=== PATIENT | female | born 1955 | race Caucasian/White ===

== ENCOUNTER → 2016-04-05 | Outpatient (CLI) | payer OTHER, MEDICARE ==
[~2016-04-05] MED LIST: /CELE20CA PO; /WARF25TA PO; ACET50TA PO; ASPI1TAB24 PO; ASPI81CH12 PO; BONI150T PO; BONIVA PO; CALC600T10 PO; CALC600T57 PO; CEFT500T PO; CENTRUM SILVER PO; CENTTAB PO; CEVI1CAP PO; COLA100C PO; COLACE PO; CYCL10TA PO; FLUO40CA57 PO; GABA600T PO; GABAPOW41 PO; HYDR4TAB PO; HYDROMORPHINE PO; IBUP60TA PO; IBUPROPHEN PO; KEPP1000 PO; KEPP500T4 PO; KEPP500T5 PO; KEPPRA PO; LANS30CA PO; LEVE500XR PO; LIDO5DIS36 TD; LUNE1TAB5 PO; LUNESTA PO; LYRI75CA PO; META0.52 PO; METAMUCIL PO; METO25TAB PO; METO75TA PO; MORPHINE PUMP; OXYC30TA4 PO; PERC2.5T PO; PRAVASTATIN PO; PREV30CA6 PO; PROZAC PO; VENL150T PO; VENLAFAXINE PO; VIT D PO; VITA100066 PO; VITMTA PO; ZOFR20TA PO; morphine pump
== END ==
LOC: M LAB 10:21
PROVIDERS: ATTEND Physician Assistant Medical
DX: R56.9 Unspecified convulsions (principal)

== ENCOUNTER → 2016-04-23 | Outpatient (CLI) | payer BC, OTHER, MEDICARE ==
[~2016-04-23] MED LIST changes: -CEFT500T PO; +CEFT500T3 PO; +FLUO40CA PO; -FLUO40CA57 PO
== END ==
LOC: M LAB 11:08
PROVIDERS: ATTEND Physician Assistant Medical
DX: R56.9 Unspecified convulsions (principal)

== ENCOUNTER → 2016-05-31 | Outpatient (CLI) | payer BC, OTHER, MEDICARE ==
[~2016-05-31] MED LIST changes: +ISOVUE-370 76% 100ML VIAL (Q9967) As Ordered ONE
--- NOTE | 2016-05-31 11:32 | REP ---
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 COMPARISONS: Multiple, the latest 11/15/2015. CONTRAST UTILIZED: 100 mL Isovue-370. There is no mediastinal or hilar adenopathy. There is a tiny collection of fluid in the medial right lung base seemingly loculated and very small. There is no pericardial effusion. The imaged upper abdomen is unchanged. The imaged osseous structures are unchanged. Evaluation of the lung sharp shows postoperative change in the right lower lobe from previous nodule resection which, by history, represented carcinoid. There are no new abnormal nodules, masses, or opacities. IMPRESSION: Status post right lower lobe resection due to carcinoid with postoperative changes as described above. There is no evidence of recurrent disease. There is a small right lung base effusion. Followup to resolution is suggested. Signed by Morgan Mendoza DO 05/31/2016 11:52 A
== END ==
LOC: M RAD 07:53
PROVIDERS: ATTEND Internal Medicine Medical Oncology
DX: Z90.2 Acquired absence of lung [part of] (principal); J90 Pleural effusion, not elsewhere classified
CPT/HCPCS: 71260; Q9967

== ENCOUNTER → 2016-06-12 | Outpatient (REF) | payer OTHER, MEDICARE ==
[~2016-06-12] MED LIST changes: -ISOVUE-370 76% 100ML VIAL (Q9967) As Ordered ONE
== END ==
LOC: M LAB REF 12:23
PROVIDERS: ATTEND Internal Medicine Medical Oncology
DX: C34.90 Malignant neoplasm of unspecified part of unspecified bronchus or lung (principal)

== ENCOUNTER → 2016-09-02 | Outpatient (CLI) | payer BC, OTHER, MEDICARE ==
[~2016-09-02] MED LIST changes: -COLA100C PO; +COLA100C3 PO
[2016-09-02 10:50] LABS: BASO % 0.4 % (0.0-1.0); EOS # 0.1 K/mm3 (0.0-0.50); EOS % 2.9 % (0.0-3.0); LARGE UNSTAINED CELL # 0.1 K/mm3 (0.0-0.4); LARGE UNSTAINED CELL % 2.5 % (0.0-4.0); LYMPH # 1.8 K/mm3 (1.5-4.5); LYMPH % 37.9 % (24.0-44.0); MEAN CORPUSCULAR HEMOGLOBIN 32.3 pg (27.0-33.0); MEAN CORPUSCULAR HGB CONC 32.4 g/dl (32.0-36.5); MEAN CORPUSCULAR VOLUME 99.4 fl (80.0-96.0); MONO # 0.3 K/mm3 (0.0-0.8); MONO % 6.5 % (0.0-5.0); NEUTROPHILS # 2.4 K/mm3 (1.8-7.7); NEUTROPHILS % 49.8 % (36.0-66.0); PLATELET COUNT, AUTOMATED 202 k/mm3 (150-450); RED CELL DISTRIBUTION WIDTH 13.1 % (11.5-14.5); WHITE BLOOD COUNT 4.8 K/mm3 (4.0-10.0)
[2016-09-02 11:13] LABS: ALBUMIN 3.3 GM/DL (3.2-5.2); ALBUMIN/GLOBULIN RATIO 0.89 (1.00-1.93); ALKALINE PHOSPHATASE 110 U/L (45-117); ALT/SGPT 68 U/L (12-78); ANION GAP 5 MEQ/L (8-16); AST/SGOT 51 U/L (15-37); BILIRUBIN,TOTAL 0.4 MG/DL (0.2-1.0); BLOOD UREA NITROGEN 12 MG/DL (7-18); CALCIUM LEVEL 9.1 MG/DL (8.8-10.2); CARBON DIOXIDE LEVEL 31 MEQ/L (21-32); CHLORIDE LEVEL 103 MEQ/L (98-107); CREATININE FOR GFR 0.68 MG/DL (0.55-1.02); GLOMERULAR FILTRATION RATE > 60.0 (>45); GLUCOSE, FASTING 97 MG/DL (80-110); POTASSIUM SERUM 4.4 MEQ/L (3.5-5.1); SODIUM LEVEL 139 MEQ/L (136-145)
== END ==
LOC: M LAB 09:27
PROVIDERS: ATTEND Internal Medicine Medical Oncology
DX: C34.90 Malignant neoplasm of unspecified part of unspecified bronchus or lung (principal)

== ENCOUNTER → 2016-09-02 | Outpatient (CLI) | payer BC, OTHER, MEDICARE ==
[~2016-09-02] MED LIST changes: +ASPI-161 PO; -ASPI1TAB24 PO; -CALC600T10 PO; +CALC600T31 PO; -COLA100C3 PO; +COLA100C5 PO; +IBUP1TAB6 PO; -IBUP60TA PO; -KEPP1000 PO; +KEPP10002 PO; +KEPP500T13 PO; -KEPP500T5 PO; -LIDO5DIS36 TD; +LIDO5DIS41 TD; +METO25TA4 PO
--- NOTE | 2016-09-04 15:14 | REP ---
Octreoscan nuclear scintigraphy with planar and SPECT imaging : History: Pulmonary carcinoid right lower lobe, status post resection. No comparison nuclear study. Comparison chest CT exam is from May 31, 2016. Technique: 6.07 mCi of Indium-111 Octreoscan is injected. 4, 24, and 48 hour whole body planar images are acquired along with planar oblique images of the trunk at 4 hours and 48 hours. A SPECT acquisition of the chest and abdomen is included as well. Findings: There is expected uptake in the bowel, genitourinary tract, spleen and faint uptake in the liver. There is no focus of increased uptake in either lung or in the mediastinum. No evidence of metastatic uptake in the liver. Impression: Negative Octreoscan nuclear scintigraphy. Signed by Armaan Bhatia MD 09/04/2016 04:32 P
== END ==
LOC: M RAD 08:50
PROVIDERS: ATTEND Internal Medicine Medical Oncology
DX: C7A.090 Malignant carcinoid tumor of the bronchus and lung (principal)

== ENCOUNTER → 2016-09-03 | Outpatient (REF) | payer OTHER, MEDICARE ==
[~2016-09-03] MED LIST changes: -ASPI-161 PO; +ASPI1TAB24 PO; +CALC600T10 PO; -CALC600T31 PO; +COLA100C3 PO; -COLA100C5 PO; -IBUP1TAB6 PO; +IBUP60TA PO; +KEPP1000 PO; -KEPP10002 PO; -KEPP500T13 PO; +KEPP500T5 PO; +LIDO5DIS36 TD; -LIDO5DIS41 TD; -METO25TA4 PO
[2016-09-09 10:09] LABS: 5HIAA 24HR URINE 3.5 mg/24 hr (0.0-14.9); 5HIAA TOTAL URINE 1.4 mg/L (Undefined)
== END ==
LOC: M LAB REF 13:24
PROVIDERS: ATTEND Internal Medicine Medical Oncology
DX: C34.90 Malignant neoplasm of unspecified part of unspecified bronchus or lung (principal)

== ENCOUNTER → 2016-09-04 | Outpatient (CLI) | payer BC, OTHER, MEDICARE | LOC: M LAB 13:20 | PROVIDERS: ATTEND Physician Assistant Medical | DX: R56.9 Unspecified convulsions (principal) ==

== ENCOUNTER → 2016-09-09 | Outpatient (CLI) | payer BC, OTHER, MEDICARE ==
--- NOTE | 2016-09-10 06:22 | REP ---
Clinical: Syncope . Technique: Hopkins scale and color Doppler evaluation using linear high frequency transducer Findings: Two-dimensional hopkins scale and color images demonstrate mixed plaquing along the distal common carotid arteries and carotid bulbs (right greater than left) with essentially normal arterial lumen, laminar flow and patency. Color Doppler interrogation demonstrates normal arterial wave patterns and velocities with mild to moderate spectral broadening. Normal flow direction is appreciated in the bilateral vertebral arteries. RIGHT (cm/s) LEFT (cm/s) ICA peak systolic velocity 59.5 51.0 ICA diastolic velocity 27.1 25.0 ECA peak systolic velocity 78.6 69.3 CCA peak systolic velocity 75.6 70.5 ICA/CCA ratio 0.79 0.72 Impression: No hemodynamically significant areas of narrowing or stenosis appreciated. Based on set standards narrowing falls within the less than 50% range. Signed by Jose G Youssef MD 09/10/2016 06:14 A
== END ==
LOC: M RAD 14:55
PROVIDERS: ATTEND Physician Assistant Medical
DX: R55 Syncope and collapse (principal)

== ENCOUNTER → 2016-12-05 | Outpatient (CLI) | payer BC, OTHER, MEDICARE ==
[~2016-12-05] MED LIST changes: +ASPI-161 PO; -ASPI1TAB24 PO; -CALC600T10 PO; +CALC600T31 PO; -COLA100C3 PO; +COLA100C5 PO; +IBUP1TAB6 PO; -IBUP60TA PO; -KEPP1000 PO; +KEPP10002 PO; +KEPP500T13 PO; -KEPP500T5 PO; -LIDO5DIS36 TD; +LIDO5DIS41 TD; +METO25TA4 PO
[2016-12-05 19:26] LABS: BASO % 0.5 % (0.0-1.0); EOS # 0.2 K/mm3 (0.0-0.50); EOS % 3.6 % (0.0-3.0); LARGE UNSTAINED CELL # 0.1 K/mm3 (0.0-0.4); LARGE UNSTAINED CELL % 2.4 % (0.0-4.0); LYMPH # 2.1 K/mm3 (1.5-4.5); MEAN CORPUSCULAR HEMOGLOBIN 32.7 pg (27.0-33.0); MEAN CORPUSCULAR HGB CONC 32.5 g/dl (32.0-36.5); MEAN CORPUSCULAR VOLUME 100.9 fl (80.0-96.0); MONO # 0.4 K/mm3 (0.0-0.8); MONO % 7.7 % (0.0-5.0); NEUTROPHILS # 2.9 K/mm3 (1.8-7.7); NEUTROPHILS % 50.9 % (36.0-66.0); PLATELET COUNT, AUTOMATED 224 k/mm3 (150-450); RED CELL DISTRIBUTION WIDTH 12.4 % (11.5-14.5); WHITE BLOOD COUNT 5.7 K/mm3 (4.0-10.0)
[2016-12-05 19:28] LABS: ALBUMIN 3.5 GM/DL (3.2-5.2); ALBUMIN/GLOBULIN RATIO 0.85 (1.00-1.93); ALKALINE PHOSPHATASE 116 U/L (45-117); ALT/SGPT 101 U/L (12-78); ANION GAP 7 MEQ/L (8-16); AST/SGOT 89 U/L (15-37); BILIRUBIN,TOTAL 0.3 MG/DL (0.2-1.0); BLOOD UREA NITROGEN 10 MG/DL (7-18); CALCIUM LEVEL 9.2 MG/DL (8.8-10.2); CARBON DIOXIDE LEVEL 31 MEQ/L (21-32); CHLORIDE LEVEL 100 MEQ/L (98-107); GLOMERULAR FILTRATION RATE > 60.0 (>45); GLUCOSE, FASTING 80 MG/DL (80-110); SODIUM LEVEL 138 MEQ/L (136-145); TOTAL PROTEIN 7.6 GM/DL (6.4-8.2)
[2016-12-05 19:29] LABS: POTASSIUM SERUM 5.2 MEQ/L (3.5-5.1)
== END ==
LOC: M LAB 17:14
PROVIDERS: ATTEND Internal Medicine Medical Oncology
DX: C34.90 Malignant neoplasm of unspecified part of unspecified bronchus or lung (principal)

== ENCOUNTER → 2016-12-08 | Outpatient (REF) | payer OTHER, MEDICARE ==
[2016-12-12 14:17] LABS: 5HIAA 24HR URINE 4.5 mg/24 hr (0.0-14.9); 5HIAA TOTAL URINE 2.1 mg/L (Undefined)
== END ==
LOC: M LAB REF 14:57
PROVIDERS: ATTEND Internal Medicine Medical Oncology
DX: C34.90 Malignant neoplasm of unspecified part of unspecified bronchus or lung (principal)

== ENCOUNTER → 2016-12-30 | Outpatient (REF) | payer OTHER, MEDICARE ==
[2016-12-30 21:55] LABS: FREE T4 0.75 NG/DL (0.76-1.46)
== END ==
LOC: M LAB REF 17:04
PROVIDERS: ATTEND Internal Medicine Medical Oncology
DX: C34.90 Malignant neoplasm of unspecified part of unspecified bronchus or lung (principal)

== ENCOUNTER → 2017-01-06 | Outpatient (CLI) | payer BC, OTHER, MEDICARE ==
--- NOTE | 2017-01-07 04:40 | REP ---
Clinical: Prior right lower lobe resection for carcinoid tumor. Follow-up. Comparison: 05/31/2016. Findings: Right-sided volume loss and postoperative changes are again identified and consistent with a history of prior right lower lobe resection and minimal postoperative scarring remains stable and the previously identified small right pleural effusion has resolved. Current examination demonstrates a 12 mm ground-glass nodule (GGN) which is not specific, but represents a new finding compared to prior examination. No significant further nodule or mass lesion is appreciated. No pleural effusion. No pneumothorax. No obvious adenopathy. Tracheobronchial tree remains patent. Mediastinum demonstrates relatively normal thoracic aorta, pulmonary vasculature and heart/pericardium with mild atherosclerotic changes again noted. Surrounding musculoskeletal structures are intact and normal. Limited evaluation of the upper abdomen demonstrates stable 1.7 cm right adrenal lesion consistent with atypical adenoma. Impression: 1. Stable postoperative changes involving the right hemithorax. Previously noted small right pleural effusion resolved. 2. 12 mm GGN warrants 6-month follow-up examination based on revised Fleischner Society criteria (lesion III-c). 3. Stable right adrenal lesion consistent with atypical adenoma. Signed by Jose G Youssef MD 01/07/2017 04:31 A
== END ==
LOC: M RAD 16:18
PROVIDERS: ATTEND Internal Medicine Pulmonary Disease
DX: C34.91 Malignant neoplasm of unspecified part of right bronchus or lung (principal)

== ENCOUNTER → 2017-02-24 | Outpatient (REF) | payer OTHER, MEDICARE ==
[2017-02-24 14:01] LABS: FREE T4 0.76 NG/DL (0.76-1.46)
== END ==
LOC: M LAB REF 13:10
PROVIDERS: ATTEND Internal Medicine Medical Oncology
DX: C34.90 Malignant neoplasm of unspecified part of unspecified bronchus or lung (principal)

== ENCOUNTER → 2017-03-27 | Outpatient (CLI) | payer BC, OTHER, MEDICARE | LOC: M RAD 09:42 | DX: R91.8 Other nonspecific abnormal finding of lung field (principal) | CPT/HCPCS: 71250 ==

== ENCOUNTER → 2017-04-02 | Outpatient (REF) | payer OTHER, MEDICARE ==
[2017-04-02 14:18] LABS: THYROID STIMULATING HORMONE 0.785 uIU/ML (0.358-3.740)
[2017-04-02 14:18] LABS: FREE T4 0.84 NG/DL (0.76-1.46)
== END ==
LOC: M LAB REF 13:04
DX: C34.90 Malignant neoplasm of unspecified part of unspecified bronchus or lung (principal)

== ENCOUNTER → 2017-05-21 | Outpatient (REF) | payer OTHER, MEDICARE ==
[2017-05-27 00:06] LABS: CHROMOGRANIN A 4 nmol/L (0-5)
== END ==
LOC: M LAB REF 13:32
DX: C34.00 Malignant neoplasm of unspecified main bronchus (principal)

== ENCOUNTER → 2017-07-03 | Outpatient (CLI) | payer OTHER, MEDICARE ==
[2017-07-06 00:06] LABS: LEVETIRACETAM (KEPPRA) 18.7 ug/mL (10.0-40.0)
== END ==
LOC: M LAB 11:08
DX: R56.9 Unspecified convulsions (principal)

== ENCOUNTER → 2017-09-22 | Outpatient (REF) | payer OTHER, MEDICARE ==
[2017-09-25 00:06] LABS: CHROMOGRANIN A 2 nmol/L (0-5)
== END ==
LOC: M LAB REF 13:16
DX: C34.31 Malignant neoplasm of lower lobe, right bronchus or lung (principal)

== ENCOUNTER → 2017-09-22 | Outpatient (CLI) | payer BC, OTHER, MEDICARE | LOC: M RAD 10:41 | DX: R91.8 Other nonspecific abnormal finding of lung field (principal); Z90.2 Acquired absence of lung [part of] ==

== ENCOUNTER → 2017-12-08 | Outpatient (CLI) | payer BC, OTHER, MEDICARE ==
[2017-12-08 22:57] LABS: CREATININE FOR GFR 0.63 MG/DL (0.55-1.30); GLOMERULAR FILTRATION RATE > 60.0 (>45)
[2017-12-08 22:57] LABS: BLOOD UREA NITROGEN 8 MG/DL (7-18)
[2017-12-12 00:06] LABS: LEVETIRACETAM (KEPPRA) 9.6 ug/mL (10.0-40.0)
== END ==
LOC: M LAB 12:45
DX: M47.896 Other spondylosis, lumbar region (principal); R56.9 Unspecified convulsions
CPT/HCPCS: 82565

== ENCOUNTER → 2017-12-15 | Outpatient (REF) | payer OTHER, MEDICARE ==
[2017-12-18 00:06] LABS: CHROMOGRANIN A 3 nmol/L (0-5)
== END ==
LOC: M LAB REF 13:41
DX: C34.31 Malignant neoplasm of lower lobe, right bronchus or lung (principal)

== ENCOUNTER → 2017-12-29 | Outpatient (CLI) | payer BC, OTHER, MEDICARE ==
[2018-01-01 10:13] LABS: LEVETIRACETAM (KEPPRA) 22.3 ug/mL (10.0-40.0)
== END ==
LOC: M LAB 17:27
DX: R56.9 Unspecified convulsions (principal)
CPT/HCPCS: 36415

== ENCOUNTER → 2018-03-05 | Outpatient (CLI) | payer OTHER, BC, MEDICARE ==
[2018-03-05 10:52] LABS: HEMATOCRIT 40.3 % (36.0-47.0); HEMOGLOBIN 12.6 g/dl (12.0-15.5); MEAN CORPUSCULAR HEMOGLOBIN 31.5 pg (27.0-33.0); MEAN CORPUSCULAR HGB CONC 31.3 g/dl (32.0-36.5); MEAN CORPUSCULAR VOLUME 100.8 fl (80.0-96.0); PLATELET COUNT, AUTOMATED 175 10^3/uL (150-450); RED CELL DISTRIBUTION WIDTH 13.2 % (11.5-14.5); WHITE BLOOD COUNT 6.6 10^3/uL (4.0-10.0)
[2018-03-05 10:56] LABS: APPEARANCE, URINE CLEAR (CLEAR); BACTERIA, URINE AUTO 1+ (NEGATIVE); BILIRUBIN, URINE AUTO NEGATIVE (NEGATIVE); BLOOD, URINE BLOOD NEGATIVE (NEGATIVE); COLOR, URINE YELLOW (YELLOW); GLUCOSE, URINE (UA) AUTO NEGATIVE (NEGATIVE); KETONE, URINE AUTO NEGATIVE (NEGATIVE); LEUKOCYTE ESTERASE, URINE AUTO NEGATIVE (NEGATIVE); NITRITE, URINE AUTO NEGATIVE (NEGATIVE); PROTEIN, URINE AUTO NEGATIVE (NEGATIVE); RBC, URINE AUTO 1 /HPF (0-3); SPECIFIC GRAVITY URINE AUTO 1.003 (1.002-1.035); SQUAMOUS EPITHELIAL CELL UR AU 0 /HPF (0-6); WBC, URINE AUTO 0 /HPF (0-3)
[2018-03-05 11:04] LABS: INR 1.16; PARTIAL THROMBOPLASTIN TIME 37.5 SECONDS (25.4-37.6); PROTHROMBIN TIME 14.9 SECONDS (12.1-14.4)
[2018-03-05 11:14] LABS: ALBUMIN 3.3 GM/DL (3.2-5.2); ALBUMIN/GLOBULIN RATIO 0.79 (1.00-1.93); ALKALINE PHOSPHATASE 196 U/L (45-117); ALT/SGPT 68 U/L (12-78); ANION GAP 7 MEQ/L (8-16); AST/SGOT 97 U/L (7-37); BILIRUBIN,TOTAL 0.8 MG/DL (0.2-1.0); BLOOD UREA NITROGEN 8 MG/DL (7-18); CALCIUM LEVEL 9.1 MG/DL (8.8-10.2); CARBON DIOXIDE LEVEL 33 MEQ/L (21-32); CHLORIDE LEVEL 97 MEQ/L (98-107); CREATININE FOR GFR 0.72 MG/DL (0.55-1.30); GLOMERULAR FILTRATION RATE > 60.0 (>45); GLUCOSE, FASTING 259 MG/DL (70-100); POTASSIUM SERUM 4.4 MEQ/L (3.5-5.1); SODIUM LEVEL 137 MEQ/L (136-145); TOTAL PROTEIN 7.5 GM/DL (6.4-8.2)
== END ==
LOC: M LAB 09:54
DX: M54.5 Low back pain (principal)
CPT/HCPCS: 80053

== ENCOUNTER → 2018-04-03 | Outpatient (REF) | payer OTHER, MEDICARE ==
[~2018-04-03] MED LIST changes: +EFFE150C2 PO; -GABA600T PO; +GABA600T4 PO; +OXYC-141 PO; +OXYC-406 PO; -ZOFR20TA PO; +ZOFR4TAB16 PO
[2018-04-03 11:18] LABS: AMORPHOUS SEDIMENT SMALL (NEGATIVE); BACTERIA, URINE AUTO 1+ (NEGATIVE); RBC, URINE AUTO 6 /HPF (0-3); SQUAMOUS EPITHELIAL CELL UR AU 0 /HPF (0-6); WBC, URINE AUTO TNTC /HPF (0-3)
== END ==
LOC: M LAB REF 10:26
PROVIDERS: ATTEND Nurse Practitioner Family
DX: N31.9 Neuromuscular dysfunction of bladder, unspecified (principal); N39.0 Urinary tract infection, site not specified

== ENCOUNTER → 2018-04-21 | Outpatient (REF) | payer OTHER, MEDICARE | LOC: M LAB REF 12:00 | PROVIDERS: ATTEND Internal Medicine | DX: N39.0 Urinary tract infection, site not specified (principal) ==

== ENCOUNTER → 2018-05-14 | Outpatient (CLI) | payer BC, OTHER, MEDICARE ==
[~2018-05-14] MED LIST changes: +GASTROGRAFIN SOLUTION 30ML (Q9963) As Ordered ONE; +ISOVUE-370 76% 100ML VIAL (Q9967) As Ordered ONE
--- NOTE | 2018-05-14 16:09 | REP ---
CT of the chest with IV contrast: Comparisons are 04/02/2018, 09/22/2017 and 03/27/2017. The the patient has a known right lower lobectomy, unchanged from the comparison studies. There are no lung masses or nodules. There are no infiltrates or effusions. There are surgical clips in the right hilus, compatible with right lower lobectomy. There is no mediastinal or hilar lymph node enlargement. No axillary lymph node enlargement. Thoracic aorta is unremarkable. Cardiac size is normal. No pericardial effusion. Impression: Right lower lobectomy, unchanged. Otherwise, negative CT of the chest. No change from prior studies. Electronically Signed by Mesfin Jones MD 05/14/2018 04:00 P
--- NOTE | 2018-05-14 16:22 | REP ---
CT of the abdomen and pelvis with IV and oral contrast dual phase imaging: Imaging is initially performed during the arterial phase of enhancement. Scanning is repeated during the equilibrium phase of enhancement. Additionally beam-hardening reduction software is utilized. There are no comparison studies. The hepatic parenchyma is homogeneous. There are no hepatic masses. There are surgical clips in the gallbladder fossa. The common biliary duct measures 18 mm transverse diameter. This is dilated even in a postcholecystectomy patient, however there is no intrahepatic biliary duct dilatation. The liver and spleen are normal size and unremarkable. There is a stable right adrenal nodule, unchanged in size from a previous chest CT dated 06/22/2014. The left adrenal is unremarkable. The kidneys are unremarkable. Abdominal aorta is unremarkable except for occasional calcified atheroma. There is no retroperitoneal mass or adenopathy. There is no mesenteric mass or adenopathy. The bowel and mesentery are unremarkable except for descending colon and sigmoid diverticulosis without diverticulitis. Pelvis: There is a hysterectomy. Vaginal cuff and adnexa are unremarkable. The bladder is unremarkable. There is no ascites or adenopathy. There is a left hip arthroplasty. Impression: Cholecystectomy. Common biliary duct measures up to 18 mm diameter, somewhat larger than usual in a postcholecystectomy patient, however there is no intrahepatic biliary duct dilatation. Hepatic parenchyma is homogeneous. Stable right adrenal nodule. Diverticulosis without diverticulitis. Hysterectomy. Electronically Signed by Mesfin Jones MD 05/14/2018 04:13 P
== END ==
LOC: M RAD 12:43
PROVIDERS: ATTEND Internal Medicine Hematology & Oncology
DX: C34.31 Malignant neoplasm of lower lobe, right bronchus or lung (principal); E27.9 Disorder of adrenal gland, unspecified; K57.32 Diverticulitis of large intestine without perforation or abscess without bleeding; K76.89 Other specified diseases of liver; Z90.2 Acquired absence of lung [part of]; Z90.49 Acquired absence of other specified parts of digestive tract; Z90.710 Acquired absence of both cervix and uterus; Z96.642 Presence of left artificial hip joint
CPT/HCPCS: 71260; 74177; Q9963; Q9967

== ENCOUNTER → 2018-07-21 | Outpatient (CLI) | payer BC, OTHER, MEDICARE ==
[~2018-07-21] MED LIST changes: -/CELE20CA PO; -/WARF25TA PO; -ACET50TA PO; -BONI150T PO; +BONI1TAB PO; +CELE1CAP4 PO; +COUM1TAB18 PO; -GASTROGRAFIN SOLUTION 30ML (Q9963) As Ordered ONE; -ISOVUE-370 76% 100ML VIAL (Q9967) As Ordered ONE; +MAPA500T17 PO; +METO1TAB63 PO; -METO25TAB PO; +TOUJ1.2I SC; -VENL150T PO; +VENL150T14 PO
== END ==
LOC: M LAB 12:16
PROVIDERS: ATTEND Physician Assistant Medical
DX: R56.9 Unspecified convulsions (principal)

== ENCOUNTER → 2018-09-01 | Outpatient (CLI) | payer BC, MEDICARE, OTHER ==
--- NOTE | 2018-09-01 18:53 | REP ---
Chest two views HISTORY: Preop Comparison: 02/02/2016 There is loss of volume in the right hemithorax. Linear densities are present in the right lower lobe consistent with scarring. The left lung is clear. The heart is normal in size. The pulmonary vasculature is normal in appearance. The bony structure is intact. There is an old right rib fracture. IMPRESSION: No acute disease. Electronically Signed by Ben Charles MD 09/01/2018 06:44 P
== END ==
LOC: M RAD 17:12
PROVIDERS: ATTEND Physical Medicine & Rehabilitation Pain Medicine
DX: G89.4 Chronic pain syndrome (principal); M54.16 Radiculopathy, lumbar region

== ENCOUNTER → 2018-09-03 | Outpatient (REF) | payer OTHER, MEDICARE ==
[2018-09-03 13:19] LABS: APPEARANCE, URINE HAZY (CLEAR); BACTERIA, URINE AUTO NEGATIVE (NEGATIVE); BILIRUBIN, URINE AUTO NEGATIVE (NEGATIVE); BLOOD, URINE BLOOD NEGATIVE (NEGATIVE); COLOR, URINE YELLOW (YELLOW); GLUCOSE, URINE (UA) AUTO 3+ mg/dL (NEGATIVE); KETONE, URINE AUTO NEGATIVE (NEGATIVE); LEUKOCYTE ESTERASE, URINE AUTO NEGATIVE (NEGATIVE); NITRITE, URINE AUTO NEGATIVE (NEGATIVE); PROTEIN, URINE AUTO NEGATIVE (NEGATIVE); RBC, URINE AUTO 1 /HPF (0-3); SPECIFIC GRAVITY URINE AUTO 1.013 (1.002-1.035); SQUAMOUS EPITHELIAL CELL UR AU 0 /HPF (0-6); WBC, URINE AUTO 1 /HPF (0-3)
[2018-09-03 13:30] LABS: INR 0.99; PROTHROMBIN TIME 13.2 SECONDS (12.1-14.4)
[2018-09-03 13:31] LABS: PARTIAL THROMBOPLASTIN TIME 35.8 SECONDS (25.4-37.6)
== END ==
LOC: M LAB REF 12:35
PROVIDERS: ATTEND Internal Medicine
DX: Z01.818 Encounter for other preprocedural examination (principal); M54.6 Pain in thoracic spine; G89.4 Chronic pain syndrome

== ENCOUNTER → 2018-10-05 | Outpatient (CLI) | payer BC, OTHER, MEDICARE ==
[~2018-10-05] MED LIST changes: +INVO100T PO
[2018-10-05 11:15] LABS: APPEARANCE, URINE CLEAR (CLEAR); BACTERIA, URINE AUTO NEGATIVE (NEGATIVE); BILIRUBIN, URINE AUTO NEGATIVE (NEGATIVE); BLOOD, URINE BLOOD NEGATIVE (NEGATIVE); COLOR, URINE YELLOW (YELLOW); GLUCOSE, URINE (UA) AUTO 3+ mg/dL (NEGATIVE); KETONE, URINE AUTO NEGATIVE (NEGATIVE); LEUKOCYTE ESTERASE, URINE AUTO NEGATIVE (NEGATIVE); NITRITE, URINE AUTO NEGATIVE (NEGATIVE); PROTEIN, URINE AUTO NEGATIVE (NEGATIVE); RBC, URINE AUTO 2 /HPF (0-3); SPECIFIC GRAVITY URINE AUTO 1.009 (1.002-1.035); SQUAMOUS EPITHELIAL CELL UR AU 0 /HPF (0-6); UROBILINOGEN, URINE AUTO 0.2 mg/dL (0.0-2.0); WBC, URINE AUTO 1 /HPF (0-3)
== END ==
LOC: M LAB 10:39
PROVIDERS: ATTEND Neurological Surgery
DX: G89.4 Chronic pain syndrome (principal)

== ENCOUNTER → 2018-11-26 | Outpatient (REF) | payer OTHER, MEDICARE ==
[2018-11-26 13:23] LABS: APPEARANCE, URINE TURBID (CLEAR); BACTERIA, URINE AUTO 1+ (NEGATIVE); BILIRUBIN, URINE AUTO NEGATIVE (NEGATIVE); BLOOD, URINE BLOOD NEGATIVE (NEGATIVE); COLOR, URINE YELLOW (YELLOW); GLUCOSE, URINE (UA) AUTO 3+ mg/dL (NEGATIVE); KETONE, URINE AUTO NEGATIVE (NEGATIVE); LEUKOCYTE ESTERASE, URINE AUTO 3+ (NEGATIVE); MUCUS, URINE SMALL (NEGATIVE); NITRITE, URINE AUTO POSITIVE (NEGATIVE); PROTEIN, URINE AUTO NEGATIVE (NEGATIVE); RBC, URINE AUTO 6 /HPF (0-3); SPECIFIC GRAVITY URINE AUTO 1.012 (1.002-1.035); SQUAMOUS EPITHELIAL CELL UR AU 1 /HPF (0-6); UROBILINOGEN, URINE AUTO 0.2 mg/dL (0.0-2.0); WBC, URINE AUTO TNTC /HPF (0-3)
== END ==
LOC: M LAB REF 13:01
PROVIDERS: ATTEND Internal Medicine
DX: N39.0 Urinary tract infection, site not specified (principal)

== ENCOUNTER → 2018-12-07 | Outpatient (CLI) | payer BC, MEDICARE ==
[~2018-12-07] MED LIST changes: +NORT25CA2 PO; +PANT40TA3 PO; +SULF1TAB93 PO
== END ==
LOC: M LAB 12:59
PROVIDERS: ATTEND Physician Assistant Medical
DX: G40.89 Other seizures (principal)

== ENCOUNTER → 2018-12-10 | Outpatient (REF) | payer OTHER, MEDICARE | LOC: M LAB REF 12:14 | PROVIDERS: ATTEND Internal Medicine | DX: N39.0 Urinary tract infection, site not specified (principal) ==

== ENCOUNTER → 2018-12-22 | Outpatient (REF) | payer OTHER, MEDICARE | LOC: M LAB REF 18:08 | PROVIDERS: ATTEND Internal Medicine | DX: N39.0 Urinary tract infection, site not specified (principal) ==

== ENCOUNTER → 2018-12-22 | Outpatient (CLI) | payer BC, OTHER, MEDICARE ==
--- NOTE | 2018-12-24 10:41 | REP ---
NUCLEAR MEDICINE TUMOR WHOLE BODY OCTREOSCAN WITH SPECT IMAGING: COMPARISON: 09/02/2016 Following the intravenous administration of 6.6 millicuries of Indium 111 Octreoscan, multiple whole body images are obtained in multiple projections at 4 hours, 24 hours and 48 hours post injection. SPECT images are performed in the axial, sagittal and coronal planes. Expected bowel activity is seen at 24 hours and 48 hours post injection. Renal and bladder activity is noted, as expected. There is normal liver and spleen uptake. No abnormal focus of uptake is seen in the chest. No abnormal liver uptake is seen and there is no other evidence of abnormal uptake in the abdomen or pelvis. IMPRESSION: Negative Octreoscan nuclear scintigraphy. Electronically Signed by Mesfin Hopkins MD 12/24/2018 01:33 P
== END ==
LOC: M RAD 08:34
PROVIDERS: ATTEND Internal Medicine Hematology & Oncology
DX: C7A.00 Malignant carcinoid tumor of unspecified site (principal)
CPT/HCPCS: 78803; 78804; A9572

== ENCOUNTER → 2019-02-12 | Outpatient (CLI) | payer BC, OTHER, MEDICARE ==
[2019-02-12 11:40] LABS: BLOOD UREA NITROGEN 10 MG/DL (7-18); CALCIUM LEVEL 8.9 MG/DL (8.8-10.2); CARBON DIOXIDE LEVEL 33 MEQ/L (21-32); CHLORIDE LEVEL 102 MEQ/L (98-107); CREATININE FOR GFR 0.67 MG/DL (0.55-1.30); GLOMERULAR FILTRATION RATE > 60.0 (>45); GLUCOSE, FASTING 103 MG/DL (70-100); POTASSIUM SERUM 4.3 MEQ/L (3.5-5.1); SODIUM LEVEL 141 MEQ/L (136-145)
== END ==
LOC: M LAB 10:08
PROVIDERS: ATTEND Internal Medicine Endocrinology, Diabetes & Metabolism
DX: M81.0 Age-related osteoporosis without current pathological fracture (principal); E55.9 Vitamin D deficiency, unspecified

== ENCOUNTER → 2019-03-12 | Outpatient (CLI) | payer BC, OTHER, MEDICARE ==
--- NOTE | 2019-03-12 12:48 | REP ---
REASON FOR EXAM: Cough. COMPARISON: 09/01/2018 There is a patchy opacity in the right lower lobe and evidence of a developing right upper lobe opacity as well. There is slight right CP angle blunting. The left lung is clear and stable. The heart is not enlarged. The osseous structures are stable and intact. IMPRESSION: Right lower lobe and possible early right upper lobe pneumonia. Electronically Signed by Morgan Mendoza DO 03/12/2019 02:43 P
== END ==
LOC: M RAD 09:29
PROVIDERS: ATTEND Internal Medicine
DX: R05 Cough (principal); R91.8 Other nonspecific abnormal finding of lung field

== ENCOUNTER → 2019-03-29 | Outpatient (CLI) | payer BC, OTHER, MEDICARE ==
--- NOTE | 2019-03-29 17:52 | REP ---
Clinical: Shortness of breath. Technique: PA and lateral. Comparison: 03/12/2019. Findings: Small right pleural effusion and right lower lobe air space disease suggests acute pneumonia. Left hemithorax is clear. This time and cardiac silhouette normal. Skeletal structures intact. Incidental old right rib fractures noted. Impression: Subtle right lower lobe infiltrate and small pleural effusion Electronically Signed by Jose G Youssef MD 03/29/2019 05:43 P
== END ==
LOC: M RAD 17:12
PROVIDERS: ATTEND Internal Medicine
DX: R91.8 Other nonspecific abnormal finding of lung field (principal); J06.9 Acute upper respiratory infection, unspecified; R06.02 Shortness of breath

== ENCOUNTER → 2019-04-08 | Outpatient (CLI) | payer BC, OTHER, MEDICARE ==
--- NOTE | 2019-04-09 05:47 | REP ---
Clinical: Dyspnea. Technique: Axial noncontrast images from the thoracic inlet to the upper abdomen with coronal and sagittal re-formations. Comparison: 05/14/2018, 01/06/2017. Findings: Prior changes related to right lower lobectomy includes surgical clips at the hilum and elevated right hemidiaphragm noted. There is a somewhat multinodular area of consolidation in the periphery of the right lower lung zone with the largest component measuring approximately 1.7 cm as well as diffuse "tree in bud" opacities scattered throughout the right lung and right basilar atelectasis. These findings appear relatively acute as compared to 05/14/2018 and likely represent multifocal pneumonia. Mild reactive mediastinal and right hilar adenopathy with lymph nodes up to approximately 9 mm noted. No associated effusion. Left hemithorax is relatively clear. Tracheobronchial tree is patent. Mediastinum demonstrates mild atherosclerotic changes to the thoracic aorta and coronary arteries without aortic aneurysm or cardiomegaly. No pericardial effusion. Musculoskeletal structures are intact without focal abnormality. Impression: 1. Parenchymal changes involving the right hemithorax as described above suggesting acute multifocal pneumonia. Follow-up to resolution is recommended as more significant pathology cannot definitively be excluded. Electronically Signed by Jose G Youssef MD 04/09/2019 05:39 A
== END ==
LOC: M RAD 08:59
PROVIDERS: ATTEND Internal Medicine Pulmonary Disease
DX: R06.00 Dyspnea, unspecified (principal); Z90.2 Acquired absence of lung [part of]; I70.0 Atherosclerosis of aorta; R91.8 Other nonspecific abnormal finding of lung field

== ENCOUNTER → 2019-05-10 | Outpatient (CLI) | payer BC, OTHER, MEDICARE ==
[~2019-05-10] MED LIST changes: +OXYC-405 PO; +VITA500079 PO
--- NOTE | 2019-05-12 14:11 | REP ---
WHOLE BODY OCTREOSCAN NUCLEAR SCINTIGRAPHY WITH SPECT IMAGING : HISTORY: Lung carcinoma. Carcinoid tumor. Restaging. COMPARISON: OctreoScan study is from December 22, 2018. TECHNIQUE: 6.6 mCi of Indium-111 Octreoscan is in injected. 4-hour, 24 hour, and 48 hour delayed whole body images are acquired along with planar images of the chest abdomen and pelvis. A SPECT acquisition is acquired. Axial sagittal and coronal tomographic images are generated. SCINTIGRAPHIC FINDINGS: There is expected physiologic distribution of Octreoscan to the spleen, liver, kidneys, urinary bladder, and skeleton. No focal area of increased uptake is seen in the chest, abdomen or within the liver to suggest metastatic disease. SPECT imaging shows no additional focus or finding. IMPRESSION: Negative Octreoscan nuclear scintigraphy. Electronically Signed by Armaan Bhatia MD 05/12/2019 04:08 P
== END ==
LOC: M RAD 08:22
PROVIDERS: ATTEND Internal Medicine Hematology
DX: C34.90 Malignant neoplasm of unspecified part of unspecified bronchus or lung (principal)
CPT/HCPCS: 78804; A9572

== ENCOUNTER → 2019-05-20 | Outpatient (CLI) | payer BC, OTHER, MEDICARE ==
--- NOTE | 2019-05-20 10:13 | REP ---
Clinical: Follow up abnormal findings. Technique: Axial noncontrast images from the thoracic inlet to the upper abdomen with coronal and sagittal re-formations. Comparison: Multiple examinations between 04/08/2019 and 01/06/2017. Findings: Previously noted scattered right-sided small consolidations and reticulonodular infiltrates have resolved. Chronic stable scattered scarring involving the right hemithorax remains stable as compared through 05/14/2018. No new acute consolidation, nodule or mass lesion. No pleural effusion. No pneumothorax. No significant axillary, hilar, or mediastinal adenopathy. Mediastinum demonstrates stable atherosclerotic changes to the thoracic aorta and coronary arteries without aortic aneurysm or cardiomegaly. No pericardial effusion. Musculoskeletal structures are stable/intact. Epidural stimulator noted at the thoracic level. Impression: 1. Previously noted infiltrates have resolved. 2. Chronic scarring in the right hemithorax remains stable. 3. No acute mediastinal or pleuroparenchymal process appreciated. Electronically Signed by Jose G Youssef MD 05/20/2019 10:05 A
== END ==
LOC: M RAD 08:33
PROVIDERS: ATTEND Internal Medicine Pulmonary Disease
DX: R91.8 Other nonspecific abnormal finding of lung field (principal)

== ENCOUNTER → 2019-08-11 | Outpatient (CLI) | payer BC, OTHER, MEDICARE ==
[~2019-08-11] MED LIST changes: +CYCL-707 PO; -CYCL10TA PO
[2019-08-11 14:42] LABS: BASO % 0.4 % (0.0-1.0); EOS # 0.2 10^3/uL (0.0-0.5); EOS % 3.6 % (0.0-3.0); HEMATOCRIT 34.8 % (36.0-47.0); HEMOGLOBIN 11.2 g/dl (12.0-15.5); LYMPH # 2.1 10^3/uL (1.5-5.0); LYMPH % 39.9 % (24.0-44.0); MEAN CORPUSCULAR HEMOGLOBIN 31.7 pg (27.0-33.0); MEAN CORPUSCULAR HGB CONC 32.2 g/dl (32.0-36.5); MEAN CORPUSCULAR VOLUME 98.6 fl (80.0-96.0); MONO # 0.5 10^3/uL (0.0-0.8); NEUTROPHILS # 2.4 10^3/uL (1.5-8.5); NEUTROPHILS % 46.9 % (36.0-66.0); PLATELET COUNT, AUTOMATED 142 10^3/uL (150-450); RED BLOOD COUNT 3.53 10^6/uL (4.00-5.40); WHITE BLOOD COUNT 5.2 10^3/uL (4.0-10.0)
[2019-08-11 15:05] LABS: ALBUMIN 3.7 GM/DL (3.2-5.2); ALT/SGPT 68 U/L (12-78); BILIRUBIN,TOTAL 0.4 MG/DL (0.2-1.0); BLOOD UREA NITROGEN 10 MG/DL (7-18); CALCIUM LEVEL 8.5 MG/DL (8.8-10.2); CARBON DIOXIDE LEVEL 32 MEQ/L (21-32); CHLORIDE LEVEL 101 MEQ/L (98-107); CREATININE FOR GFR 0.63 MG/DL (0.55-1.30); GLOMERULAR FILTRATION RATE > 60.0 (>45); GLUCOSE, FASTING 83 MG/DL (70-100); POTASSIUM SERUM 4.3 MEQ/L (3.5-5.1); SODIUM LEVEL 137 MEQ/L (136-145); TOTAL PROTEIN 7.3 GM/DL (6.4-8.2)
== END ==
LOC: M LAB 14:09
PROVIDERS: ATTEND Internal Medicine Medical Oncology
DX: C34.90 Malignant neoplasm of unspecified part of unspecified bronchus or lung (principal)

== ENCOUNTER → 2019-08-19 | Outpatient (CLI) | payer BC, OTHER, MEDICARE | LOC: M LAB 15:56 | PROVIDERS: ATTEND Physician Assistant Medical | DX: R56.9 Unspecified convulsions (principal); Z51.81 Encounter for therapeutic drug level monitoring ==

== ENCOUNTER → 2019-08-19 | Outpatient (CLI) | payer BC, OTHER, MEDICARE | LOC: M LAB 16:00 | PROVIDERS: ATTEND Internal Medicine Endocrinology, Diabetes & Metabolism | DX: M81.0 Age-related osteoporosis without current pathological fracture (principal) ==

== ENCOUNTER → 2019-09-06 | Outpatient (CLI) | payer BC, OTHER, MEDICARE ==
[2019-09-06 17:18] LABS: BASO % 0.6 % (0.0-1.0); EOS # 0.2 10^3/uL (0.0-0.5); EOS % 3.2 % (0.0-3.0); HEMATOCRIT 37.3 % (36.0-47.0); LYMPH % 40.3 % (24.0-44.0); MEAN CORPUSCULAR HEMOGLOBIN 32.2 pg (27.0-33.0); MEAN CORPUSCULAR HGB CONC 32.2 g/dl (32.0-36.5); MONO # 0.5 10^3/uL (0.0-0.8); MONO % 9.4 % (0.0-5.0); NEUTROPHILS # 2.3 10^3/uL (1.5-8.5); NEUTROPHILS % 46.3 % (36.0-66.0); PLATELET COUNT, AUTOMATED 164 10^3/uL (150-450); RED BLOOD COUNT 3.73 10^6/uL (4.00-5.40)
[2019-09-06 17:40] LABS: ALBUMIN 3.7 GM/DL (3.2-5.2); ALT/SGPT 42 U/L (12-78); BILIRUBIN,TOTAL 0.4 MG/DL (0.2-1.0); BLOOD UREA NITROGEN 9 MG/DL (7-18); CALCIUM LEVEL 9.1 MG/DL (8.8-10.2); CARBON DIOXIDE LEVEL 30 MEQ/L (21-32); CHLORIDE LEVEL 101 MEQ/L (98-107); GLOMERULAR FILTRATION RATE > 60.0 (>45); GLUCOSE, FASTING 79 MG/DL (70-100); POTASSIUM SERUM 4.5 MEQ/L (3.5-5.1); SODIUM LEVEL 137 MEQ/L (136-145); TOTAL PROTEIN 7.4 GM/DL (6.4-8.2)
== END ==
LOC: M LAB 15:04
PROVIDERS: ATTEND Internal Medicine Medical Oncology
DX: C7A.090 Malignant carcinoid tumor of the bronchus and lung (principal)

== ENCOUNTER → 2019-12-13 | Outpatient (CLI) | payer BC, OTHER, MEDICARE ==
[~2019-12-13] MED LIST changes: +PANT40TA29 PO; -PANT40TA3 PO; +PROBCAP2 PO
== END ==
LOC: M LAB 12:43
PROVIDERS: ATTEND Physician Assistant Medical
DX: G40.89 Other seizures (principal)

== ENCOUNTER → 2019-12-23 | Outpatient (CLI) | payer BC, OTHER, MEDICARE ==
[2019-12-23 18:10] LABS: BLOOD UREA NITROGEN 11 MG/DL (7-18); GLOMERULAR FILTRATION RATE > 60.0 (>45)
== END ==
LOC: M LAB 16:18
PROVIDERS: ATTEND Physician Assistant Medical
DX: I10 Essential (primary) hypertension (principal)

== ENCOUNTER → 2019-12-24 | Outpatient (REF) | payer OTHER, MEDICARE | LOC: M LAB REF 16:34 | PROVIDERS: ATTEND Internal Medicine Pulmonary Disease | DX: R91.8 Other nonspecific abnormal finding of lung field (principal) ==

== ENCOUNTER → 2020-03-15 | Outpatient (CLI) | payer BC, OTHER, MEDICARE ==
[~2020-03-15] MED LIST changes: +CHOL4POW4 PO
[2020-03-15 11:28] LABS: CALCIUM LEVEL 8.7 MG/DL (8.8-10.2)
== END ==
LOC: M LAB 10:34
PROVIDERS: ATTEND Internal Medicine Endocrinology, Diabetes & Metabolism
DX: M81.0 Age-related osteoporosis without current pathological fracture (principal); E55.9 Vitamin D deficiency, unspecified

== ENCOUNTER → 2020-04-04 | Outpatient (CLI) | payer BC, OTHER, MEDICARE ==
--- NOTE | 2020-04-06 13:44 | REP ---
INDICATION: CARCINOID TUMOR. COMPARISON: 05/11/2019. TECHNIQUE/RADIOTRACER AND DOSE: Following the intravenous administration of 6.5 mCi indium 111 octreoscan, multiple images of the whole body are obtained in multiple projections at 4 hours, 24 hours and 48 hours post injection. SPECT images are performed in the axial, sagittal and coronal planes. FINDINGS: There is expected bowel activity at 24 hours and 48 hours post injection. Renal and bladder activity is noted as expected. Normal liver and spleen uptake is noted. No abnormal focus of uptake is seen in the chest, abdomen or pelvis. IMPRESSION: Negative octreotide scan. No change since prior study. <Electronically signed by Mesfin Hopkins > 04/06/20 [id number]
== END ==
LOC: M RAD 08:27
PROVIDERS: ATTEND Specialist
DX: C34.90 Malignant neoplasm of unspecified part of unspecified bronchus or lung (principal)
CPT/HCPCS: 78803; 78804; A9572

== ENCOUNTER → 2020-04-25 | Outpatient (CLI) | payer BC, OTHER, MEDICARE ==
--- NOTE | 2020-04-26 17:43 | REP ---
INDICATION: RESTAGING LUNG CANCER. 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 Incidental 7 mm carcinoid tumor. COMPARISON: Comparison PET-CT study is reviewed from December 13, 2015. TECHNIQUE: Approximately 45 minutes following the intravenous injection of a 7.46 mCi dose of F-18 FDG, three-dimensional PET scintigraphy is acquired from the skull base to the proximal thighs. Triplanar noncontrast CT scanning is acquired through the same anatomic range for attenuation correction, and image registration with scan parameters optimized to minimize radiation exposure to the patient. PET scintigraphy and CT datasets were fused and displayed on a workstation with multiplanar and projection display capability. FINDINGS: Head and neck soft tissues are unremarkable. There is no abnormal hilar or mediastinal hypermetabolic uptake focus. There is no abnormal pulmonary parenchymal uptake or visible pulmonary mass lesion. There are scattered linear densities on the right consistent with fibrosis. In the abdomen and pelvis, normal hepatic, splenic, gastrointestinal, and genitourinary FDG accumulation is seen. Gallbladder surgically absent. No abnormal adrenal uptake is seen. No abnormal hypermetabolic focus is seen in the abdomen or pelvis. There is some mild subcutaneous uptake in injection sites in the gluteal subcutaneous region bilaterally. IMPRESSION: Negative PET scintigraphy. No abnormal hypermetabolic uptake seen. <Electronically signed by [place] Bhatia > 04/26/20 [id number]
== END ==
LOC: M PLARAD 12:29
PROVIDERS: ATTEND Specialist
DX: C34.31 Malignant neoplasm of lower lobe, right bronchus or lung (principal); Z90.2 Acquired absence of lung [part of]
CPT/HCPCS: 78815; A9552

== ENCOUNTER → 2020-05-04 | Outpatient (CLI) | payer BC, OTHER, MEDICARE ==
--- NOTE | 2020-05-04 09:38 | REP ---
INDICATION: ABN FINDING OF LUNG COMPARISON: 05/20/2019 TECHNIQUE: Axial noncontrast images from the thoracic inlet to the upper abdomen with coronal and sagittal reformations. This CT examination was performed using the following dose reduction techniques: Automated exposure control, adjustment of mA and/or kv according to the patient's size, and use of iterative reconstruction technique. FINDINGS: Chronic fibro atelectatic changes in the right base remains stable. Small scattered superimposed non solid ground-glass areas of opacity in the right lung are identified on current examination which may reflect early acute multifocal pneumonia. The left hemithorax is clear. No effusion. No pneumothorax. Tracheobronchial tree is patent. Stable atherosclerotic changes to the thoracic aorta and coronary arteries without aortic aneurysm or cardiomegaly. No pericardial effusion. IMPRESSION: 1. Chronic stable changes. 2. Subtle superimposed scattered non solid ground-glass opacities primarily in the right hemithorax may reflect early acute multifocal pneumonia. <Electronically signed by Jose G Youssef > 05/04/20 [id number]
== END ==
LOC: M RAD 08:56
PROVIDERS: ATTEND Internal Medicine Pulmonary Disease
DX: R91.8 Other nonspecific abnormal finding of lung field (principal)

== ENCOUNTER → 2020-06-27 | Outpatient (REF) | payer OTHER, MEDICARE | LOC: M LAB REF 09:37 | PROVIDERS: ATTEND Physician Assistant Medical | DX: R56.9 Unspecified convulsions (principal) ==

== ENCOUNTER → 2020-09-11 | Outpatient (CLI) | payer BC, OTHER, MEDICARE ==
[~2020-09-11] MED LIST changes: +BACTDSTA PO; -SULF1TAB93 PO
[2020-09-11 12:28] LABS: CALCIUM LEVEL 9.3 MG/DL (8.8-10.2)
[2020-09-11 12:44] LABS: TOTAL 25(OH) VITAMIN D 34.2 NG/ML (30.0-100.0)
== END ==
LOC: M LAB 11:34
PROVIDERS: ATTEND Internal Medicine Endocrinology, Diabetes & Metabolism
DX: M81.0 Age-related osteoporosis without current pathological fracture (principal); E55.9 Vitamin D deficiency, unspecified

== ENCOUNTER → 2020-09-11 | Outpatient (CLI) | payer BC, OTHER, MEDICARE | LOC: M LAB 11:27 | PROVIDERS: ATTEND Physician Assistant Medical | DX: R56.9 Unspecified convulsions (principal) ==

== ENCOUNTER → 2020-11-13 | Outpatient (CLI) | payer BC, OTHER, MEDICARE ==
--- NOTE | 2020-11-13 23:18 | REP ---
INDICATION: ABN FINDING OF LUNG COMPARISON: 04/25/2020, 05/20/2019 TECHNIQUE: Axial noncontrast images from the thoracic inlet to the upper abdomen with coronal and sagittal reformations. This CT examination was performed using the following dose reduction techniques: Automated exposure control, adjustment of mA and/or kv according to the patient's size, and use of iterative reconstruction technique. FINDINGS: Right-sided postsurgical changes along with bilateral chronic interstitial changes remains stable. Subtle scattered right-sided infiltrates on the prior examination have resolved. Current examination demonstrates no consolidation, suspicious nodule or mass. No effusion or pneumothorax. No obvious adenopathy. Mediastinum demonstrates stable atherosclerotic changes. No pericardial effusion. Osseous structures are intact. IMPRESSION: Chronic/postsurgical changes remains stable. Previous right-sided infiltrates resolved. No acute mediastinal or pleuroparenchymal process. <Electronically signed by Jose G Youssef > 11/13/20 [id number]
== END ==
LOC: M PLAIMG 13:15
PROVIDERS: ATTEND Internal Medicine Pulmonary Disease
DX: R91.8 Other nonspecific abnormal finding of lung field (principal)

== ENCOUNTER → 2021-01-18 | Outpatient (REF) | payer BC, OTHER, MEDICARE | LOC: M LAB REF 16:54 | PROVIDERS: ATTEND Registered Nurse | DX: R30.0 Dysuria (principal); N31.9 Neuromuscular dysfunction of bladder, unspecified ==

== ENCOUNTER → 2021-03-15 | Outpatient (CLI) | payer BC, OTHER, MEDICARE ==
[~2021-03-15] MED LIST changes: +D31000TA2 PO; +ONDA-195 PO
[2021-03-15 12:09] LABS: CALCIUM LEVEL 9.5 MG/DL (8.8-10.2)
[2021-03-15 12:24] LABS: TOTAL 25(OH) VITAMIN D 32.1 NG/ML (30.0-100.0)
== END ==
LOC: M LAB 10:42
PROVIDERS: ATTEND Internal Medicine Endocrinology, Diabetes & Metabolism
DX: M81.0 Age-related osteoporosis without current pathological fracture (principal)

== ENCOUNTER → 2021-05-27 | Outpatient (CLI) | payer BC, OTHER, MEDICARE | LOC: M LAB 06:58 | PROVIDERS: ATTEND Internal Medicine | DX: R19.7 Diarrhea, unspecified (principal) ==

== ENCOUNTER → 2021-08-10 | Outpatient (CLI) | payer BC, OTHER, MEDICARE ==
[~2021-08-10] MED LIST changes: +CHOL4POW15 PO; -CHOL4POW4 PO; -D31000TA2 PO; +VITA100093 PO
== END ==
LOC: M WHC 13:05
PROVIDERS: ATTEND Nurse Practitioner Family
DX: M81.0 Age-related osteoporosis without current pathological fracture (principal); M85.851 Other specified disorders of bone density and structure, right thigh; M85.88 Other specified disorders of bone density and structure, other site

== ENCOUNTER → 2021-08-23 | Outpatient (CLI) | payer BC, OTHER, MEDICARE | LOC: M LAB 16:07 | PROVIDERS: ATTEND Nurse Practitioner Family | DX: M81.0 Age-related osteoporosis without current pathological fracture (principal) ==

== ENCOUNTER → 2021-10-26 | Outpatient (REF) | payer OTHER, MEDICARE ==
[~2021-10-26] MED LIST changes: -CHOL4POW15 PO; +CHOL4POW26 PO; +LASI40TA9 PO; +POTA-151 PO
== END ==
LOC: M LAB REF 16:08
PROVIDERS: ATTEND Nurse Practitioner Adult Health
DX: R30.0 Dysuria (principal)

== ENCOUNTER → 2021-11-16 | Outpatient (CLI) | payer BC, OTHER, MEDICARE ==
[~2021-11-16] MED LIST changes: +ISOVUE-370 76% 100ML VIAL As Ordered ONE
== END ==
LOC: M RAD 16:15
PROVIDERS: ATTEND Specialist
DX: Z85.118 Personal history of other malignant neoplasm of bronchus and lung (principal); E27.8 Other specified disorders of adrenal gland; K76.0 Fatty (change of) liver, not elsewhere classified
CPT/HCPCS: 71260; Q9967

== ENCOUNTER → 2021-11-23 | Outpatient (REF) | payer OTHER, MEDICARE, BC ==
[~2021-11-23] MED LIST changes: -ISOVUE-370 76% 100ML VIAL As Ordered ONE
[2021-11-23 11:28] LABS: APPEARANCE, URINE MANUAL CLEAR (CLEAR); COLOR, URINE MANUAL YELLOW (YELLOW)
[2021-11-23 11:29] LABS: BILIRUBIN, URINE MANUAL NEGATIVE (NEGATIVE); BLOOD URINE MANUAL NEGATIVE (NEGATIVE); GLUCOSE, URINE (UA) MANUAL NEGATIVE (NEGATIVE); KETONE, URINE MANUAL NEGATIVE (NEGATIVE); LEUKOCYTE ESTERASE, URINE MAN POSITIVE (NEGATIVE); NITRITE, URINE MANUAL NEGATIVE (NEGATIVE); PROTEIN, URINE MANUAL NEGATIVE (NEGATIVE); UROBILINOGEN, URINE MANUAL 1 MG mg/dl (NORMAL)
[2021-11-23 12:00] LABS: BACTERIA, URINE LARGE AMOUNT; HYALINE CAST, URINE NONE SEEN /lpf (0-1); RBC, URINE 0-1 /hpf (0-3); SQUAMOUS EPITHELIAL CELL URINE SMALL AMOUNT /hpf (SMALL AMT)
== END ==
LOC: M LAB REF 11:16
PROVIDERS: ATTEND Internal Medicine
DX: R30.0 Dysuria (principal)

== ENCOUNTER → 2021-12-10 | Outpatient (CLI) | payer BC, OTHER, MEDICARE | LOC: M PLARAD 11:06 | PROVIDERS: ATTEND Internal Medicine Pulmonary Disease | DX: C34.31 Malignant neoplasm of lower lobe, right bronchus or lung (principal) | CPT/HCPCS: 78815; A9552 ==

== ENCOUNTER → 2021-12-18 | Outpatient (CLI) | payer BC, OTHER, MEDICARE | LOC: M LAB 16:45 | PROVIDERS: ATTEND Internal Medicine | DX: E87.6 Hypokalemia (principal) ==

== ENCOUNTER 2021-12-24 18:14 | Emergency (ER) | payer BC, MEDICARE, OTHER ==
[~2021-12-24] VITALS: Ht 170.2 cm; Wt 88.6 kg
[2021-12-24] MEDS ORDERED: MORPHINE 10 MG/ML 1ML VIAL IM ONE (22:45)
[2021-12-24] MEDS ORDERED: GABAPENTIN 300 MG CAP PO ONE (22:45)
[2021-12-24] MEDS ORDERED: PERCOCET 5MG/325MG TAB PO ONE (23:45)
[2021-12-25 01:09] VITALS: BP 105/72
[2021-12-25] MEDS ORDERED: GABA-282 PO (01:10)
[2021-12-25] MEDS ORDERED: GABAPENTIN 300 MG CAP PO ONE (01:15)
== END 2021-12-25 01:38 | disposition home or self-care (01) ==
LOC: M ED 18:14
DX: M54.50 Low back pain, unspecified (principal); E11.9 Type 2 diabetes mellitus without complications; E78.5 Hyperlipidemia, unspecified; I25.2 Old myocardial infarction; J45.909 Unspecified asthma, uncomplicated; K21.9 Gastro-esophageal reflux disease without esophagitis; N31.9 Neuromuscular dysfunction of bladder, unspecified; Z98.61 Coronary angioplasty status
CPT/HCPCS: 96372; 99283; J2270

== ENCOUNTER → 2022-01-02 | Outpatient (REF) | payer OTHER, MEDICARE, BC ==
[~2022-01-02] MED LIST changes: +GABA-282 PO; +NEUR300C PO; +NEUR600T PO
== END ==
LOC: M LAB REF 15:51
PROVIDERS: ATTEND Internal Medicine Pulmonary Disease
DX: D44.11 Neoplasm of uncertain behavior of right adrenal gland (principal)

== ENCOUNTER 2022-01-04 18:44 | Emergency (ER) | payer OTHER, MEDICARE, BC ==
[~2022-01-04] VITALS: Ht 167.6 cm; Wt 190.0 kg
[~2022-01-04 18:44] MED LIST changes: -NEUR300C PO; -NEUR600T PO
[2022-01-04] MEDS ORDERED: MORPHINE 4 MG/ML 1ML VIAL/SYRINGE IM ONE (21:25)
[2022-01-04] MEDS ORDERED: GABAPENTIN 300 MG CAP PO ONE (21:25)
[2022-01-04] MEDS ORDERED: NEUR300C PO (22:32)
[2022-01-04] MEDS ORDERED: NEUR600T PO (22:32)
[2022-01-04 22:37] VITALS: BP 131/84
== END 2022-01-04 22:52 | disposition home or self-care (01) ==
LOC: M ED 18:44
DX: Z76.0 Encounter for issue of repeat prescription (principal); I25.10 Atherosclerotic heart disease of native coronary artery without angina pectoris; I25.2 Old myocardial infarction; E78.5 Hyperlipidemia, unspecified; K21.9 Gastro-esophageal reflux disease without esophagitis; M54.9 Dorsalgia, unspecified; Z98.61 Coronary angioplasty status; Z79.4 Long term (current) use of insulin; Z79.82 Long term (current) use of aspirin; Z79.899 Other long term (current) drug therapy; Z88.8 Allergy status to other drugs, medicaments and biological substances
CPT/HCPCS: 96372; 99283; J2270

== ENCOUNTER → 2022-02-04 | Outpatient (CLI) | payer BC, OTHER, MEDICARE ==
[~2022-02-04] MED LIST changes: +NEUR300C PO; +NEUR600T PO
[2022-02-04 12:57] LABS: MAGNESIUM LEVEL 1.4 MG/DL (1.8-2.4); THYROID STIMULATING HORMONE 0.827 uIU/ML (0.358-3.740)
[2022-02-04 22:52] LABS: HEMOGLOBIN A1c 7.2 %
[2022-02-05 14:59] LABS: BLOOD UREA NITROGEN 7 MG/DL (7-18); CALCIUM LEVEL 8.5 MG/DL (8.8-10.2); CARBON DIOXIDE LEVEL 34 MEQ/L (21-32); CHLORIDE LEVEL 98 MEQ/L (98-107); CREATININE FOR GFR 0.67 MG/DL (0.55-1.30); GLOMERULAR FILTRATION RATE > 60.0 (>45); GLUCOSE, FASTING 150 MG/DL (70-100); SODIUM LEVEL 141 MEQ/L (136-145)
== END ==
LOC: M LAB 10:38
PROVIDERS: ATTEND Internal Medicine
DX: M35.00 Sjogren syndrome, unspecified (principal); F32.89 Other specified depressive episodes; E11.9 Type 2 diabetes mellitus without complications; K30 Functional dyspepsia

== ENCOUNTER → 2022-02-19 | Outpatient (REF) | payer OTHER, MEDICARE, BC | LOC: M LAB REF 09:18 | PROVIDERS: ATTEND Internal Medicine | DX: G40.909 Epilepsy, unspecified, not intractable, without status epilepticus (principal); E11.65 Type 2 diabetes mellitus with hyperglycemia ==

== ENCOUNTER → 2022-02-25 | Outpatient (CLI) | payer BC, MEDICARE, OTHER ==
[2022-02-25 13:54] LABS: CARBON DIOXIDE LEVEL 34 MMOL/L (20-31); CHLORIDE LEVEL 97 MMOL/L (98-107); SODIUM LEVEL 143 MMOL/L (136-145)
[2022-02-25 13:57] LABS: BLOOD UREA NITROGEN 9 MG/DL (9-23)
[2022-02-25 14:00] LABS: CALCIUM LEVEL 8.4 MG/DL (8.3-10.6); GLUCOSE, FASTING 186 MG/DL (74-106)
[2022-02-25 14:01] LABS: MAGNESIUM LEVEL 1.6 MG/DL (1.8-2.4)
[2022-02-25 14:02] LABS: CREATININE FOR GFR 0.59 MG/DL (0.55-1.30); GLOMERULAR FILTRATION RATE > 60.0 (>45)
== END ==
LOC: M LAB 10:05
PROVIDERS: ATTEND Internal Medicine
DX: E11.65 Type 2 diabetes mellitus with hyperglycemia (principal); I47.1 Supraventricular tachycardia

== ENCOUNTER → 2022-03-06 | Outpatient (CLI) | payer BC, MEDICARE, OTHER ==
[2022-03-06 12:00] LABS: MAGNESIUM LEVEL 1.7 MG/DL (1.8-2.4)
[2022-03-06 12:05] LABS: BLOOD UREA NITROGEN 8 MG/DL (9-23); CALCIUM LEVEL 8.9 MG/DL (8.3-10.6); CARBON DIOXIDE LEVEL 29 MMOL/L (20-31); CHLORIDE LEVEL 104 MMOL/L (98-107); CREATININE FOR GFR 0.52 MG/DL (0.55-1.30); GLOMERULAR FILTRATION RATE > 60.0 (>45); GLUCOSE, FASTING 148 MG/DL (74-106); POTASSIUM SERUM 3.8 MMOL/L (3.5-5.1); SODIUM LEVEL 141 MMOL/L (136-145)
== END ==
LOC: M LAB 10:26
PROVIDERS: ATTEND Internal Medicine
DX: G40.909 Epilepsy, unspecified, not intractable, without status epilepticus (principal)

== ENCOUNTER → 2022-03-06 | Outpatient (CLI) | payer BC, MEDICARE, OTHER ==
[2022-03-06 12:04] LABS: TOTAL 25(OH) VITAMIN D 63.6 NG/ML (20.0-100.0)
== END ==
LOC: M LAB 10:29
PROVIDERS: ATTEND Internal Medicine Endocrinology, Diabetes & Metabolism
DX: M81.0 Age-related osteoporosis without current pathological fracture (principal)

== ENCOUNTER → 2022-03-08 | Outpatient (CLI) | payer BC, OTHER, MEDICARE | LOC: M PLAIMG 08:35 | PROVIDERS: ATTEND Physician Assistant | DX: R53.1 Weakness (principal) ==

== ENCOUNTER → 2022-03-08 | Outpatient (CLI) | payer BC, OTHER, MEDICARE | LOC: M WHC 07:48 | PROVIDERS: ATTEND Internal Medicine | DX: Z12.31 Encounter for screening mammogram for malignant neoplasm of breast (principal) ==

== ENCOUNTER → 2022-03-11 | Outpatient (CLI) | payer BC, OTHER, MEDICARE | LOC: M PLARAD 13:57 | PROVIDERS: ATTEND Specialist | DX: C34.31 Malignant neoplasm of lower lobe, right bronchus or lung (principal) ==

== ENCOUNTER → 2022-04-04 | Outpatient (CLI) | payer BC, OTHER, MEDICARE ==
[~2022-04-04] MED LIST changes: +GNP250TA9 PO; +HYDR1LIQ PO; +[UNRECOGNIZED DRUG - CODE] IT
== END ==
LOC: M PLAIMG 08:04
PROVIDERS: ATTEND Internal Medicine Pulmonary Disease
DX: D35.01 Benign neoplasm of right adrenal gland (principal); Z90.49 Acquired absence of other specified parts of digestive tract; K74.60 Unspecified cirrhosis of liver

== ENCOUNTER → 2022-04-08 | Outpatient (CLI) | payer BC, OTHER, MEDICARE ==
[2022-04-08 12:44] LABS: TOTAL 25(OH) VITAMIN D 58.8 NG/ML (20.0-100.0)
== END ==
LOC: M LAB 11:15
PROVIDERS: ATTEND Internal Medicine Endocrinology, Diabetes & Metabolism
DX: M81.0 Age-related osteoporosis without current pathological fracture (principal)

== ENCOUNTER → 2022-06-06 | Outpatient (CLI) | payer BC, OTHER, MEDICARE ==
[~2022-06-06] MED LIST changes: -OXYC-405 PO; -OXYC-406 PO; +OXYC40TA40 PO; +[UNRECOGNIZED DRUG - CODE] PO
[2022-06-06 11:22] LABS: HEMOGLOBIN A1c 6.5 % (4.0-6.0)
[2022-06-06 11:25] LABS: BLOOD UREA NITROGEN 10 MG/DL (9-23); CALCIUM LEVEL 8.8 MG/DL (8.3-10.6); CARBON DIOXIDE LEVEL 34 MMOL/L (20-31); CHLORIDE LEVEL 100 MMOL/L (98-107); CREATININE FOR GFR 0.53 MG/DL (0.55-1.30); GLOMERULAR FILTRATION RATE > 60.0 (>45); GLUCOSE, FASTING 152 MG/DL (74-106); MAGNESIUM LEVEL 1.7 MG/DL (1.8-2.4); POTASSIUM SERUM 3.6 MMOL/L (3.5-5.1); SODIUM LEVEL 139 MMOL/L (136-145)
== END ==
LOC: M LAB 10:17
PROVIDERS: ATTEND Internal Medicine
DX: E11.65 Type 2 diabetes mellitus with hyperglycemia (principal); E83.42 Hypomagnesemia

== ENCOUNTER → 2022-06-19 | Outpatient (CLI) | payer BC, OTHER, MEDICARE ==
[~2022-06-19] MED LIST changes: +METF-838; +SPIR50TA4
== END ==
LOC: M RAD 12:17
PROVIDERS: ATTEND Physician Assistant
DX: I73.9 Peripheral vascular disease, unspecified (principal)

== ENCOUNTER → 2022-07-09 | Outpatient (REF) | payer BC, OTHER, MEDICARE ==
[2022-07-09 11:48] LABS: HEMOGLOBIN A1c 6.6 % (4.0-6.0)
== END ==
LOC: M LAB REF 10:46
PROVIDERS: ATTEND Internal Medicine
DX: E11.65 Type 2 diabetes mellitus with hyperglycemia (principal); E83.42 Hypomagnesemia

== ENCOUNTER → 2022-08-01 | Outpatient (CLI) | payer BC, OTHER, MEDICARE ==
[2022-08-01 16:14] LABS: BLOOD UREA NITROGEN 7 MG/DL (9-23); CALCIUM LEVEL 8.4 MG/DL (8.3-10.6); CARBON DIOXIDE LEVEL 31 MMOL/L (20-31); CHLORIDE LEVEL 102 MMOL/L (98-107); CREATININE FOR GFR 0.59 MG/DL (0.55-1.30); GLOMERULAR FILTRATION RATE > 60.0 (>45); GLUCOSE, FASTING 142 MG/DL (74-106); MAGNESIUM LEVEL 1.7 MG/DL (1.8-2.4); SODIUM LEVEL 140 MMOL/L (136-145)
== END ==
LOC: M LAB 15:04
PROVIDERS: ATTEND Internal Medicine
DX: G40.909 Epilepsy, unspecified, not intractable, without status epilepticus (principal)

== ENCOUNTER → 2022-08-20 | Outpatient (CLI) | payer BC, OTHER, MEDICARE ==
[~2022-08-20] MED LIST changes: +SLOWTAB2 PO
== END ==
LOC: M LAB 12:29
PROVIDERS: ATTEND Internal Medicine
DX: E83.42 Hypomagnesemia (principal)

== ENCOUNTER → 2022-09-13 | Outpatient (CLI) | payer BC, OTHER, MEDICARE | LOC: M LAB 12:06 | PROVIDERS: ATTEND Internal Medicine Endocrinology, Diabetes & Metabolism | DX: M81.0 Age-related osteoporosis without current pathological fracture (principal) ==

== ENCOUNTER → 2022-09-13 | Outpatient (CLI) | payer BC, OTHER, MEDICARE | LOC: M RAD 12:03 | PROVIDERS: ATTEND Internal Medicine | DX: R05.9 Cough, unspecified (principal); R91.8 Other nonspecific abnormal finding of lung field ==

== ENCOUNTER → 2022-10-14 | Outpatient (CLI) | payer BC, OTHER, MEDICARE ==
[~2022-10-14] MED LIST changes: +BENZ-18; +IPRA0.00
== END ==
LOC: M LAB 14:01
PROVIDERS: ATTEND Internal Medicine Endocrinology, Diabetes & Metabolism
DX: M81.0 Age-related osteoporosis without current pathological fracture (principal)

== ENCOUNTER → 2023-01-05 | Outpatient (REF) | payer BC, OTHER, MEDICARE ==
[~2023-01-05] MED LIST changes: +ALBU2.5V10
== END ==
LOC: M LAB REF 20:52
PROVIDERS: ATTEND Internal Medicine
DX: R19.7 Diarrhea, unspecified (principal)

== ENCOUNTER → 2023-01-08 | Outpatient (CLI) | payer BC, OTHER, MEDICARE ==
[2023-01-08 15:58] LABS: BLOOD UREA NITROGEN 8 MG/DL (9-23); CREATININE FOR GFR 0.55 MG/DL (0.55-1.30); GLOMERULAR FILTRATION RATE > 60.0 (>45)
== END ==
LOC: M LAB 14:50
PROVIDERS: ATTEND Physical Medicine & Rehabilitation
DX: M79.604 Pain in right leg (principal)

== ENCOUNTER → 2023-01-08 | Outpatient (CLI) | payer BC, OTHER, MEDICARE ==
[2023-01-08 16:14] LABS: BLOOD UREA NITROGEN 7 MG/DL (9-23); CALCIUM LEVEL 8.6 MG/DL (8.3-10.6); CARBON DIOXIDE LEVEL 32 MMOL/L (20-31); CHLORIDE LEVEL 100 MMOL/L (98-107); CREATININE FOR GFR 0.54 MG/DL (0.55-1.30); GLOMERULAR FILTRATION RATE > 60.0 (>45); GLUCOSE, FASTING 179 MG/DL (74-106); MAGNESIUM LEVEL 1.8 MG/DL (1.8-2.4); POTASSIUM SERUM 3.6 MMOL/L (3.5-5.1); SODIUM LEVEL 137 MMOL/L (136-145)
== END ==
LOC: M LAB 14:55
PROVIDERS: ATTEND Physician Assistant
DX: R06.00 Dyspnea, unspecified (principal)

== ENCOUNTER → 2023-02-25 | Outpatient (CLI) | payer BC, OTHER, MEDICARE ==
[~2023-02-25] MED LIST changes: +FURO20TA2
[2023-02-25 16:06] LABS: HEMOGLOBIN A1c 7.4 % (4.0-6.0)
[2023-02-25 16:22] LABS: CHOLESTEROL RISK RATIO 2.64 (<5); HDL CHOLESTEROL 66.2 MG/DL (>40); LDL CHOLESTEROL 88.8 MG/DL (<100); MAGNESIUM LEVEL 1.6 MG/DL (1.8-2.4); NON-HDL-C 108.8 MG/DL
[2023-02-25 16:25] LABS: THYROID STIMULATING HORMONE 0.993 uIU/ML (0.55-4.78)
== END ==
LOC: M LAB 15:18
PROVIDERS: ATTEND Internal Medicine
DX: E78.5 Hyperlipidemia, unspecified (principal); E83.42 Hypomagnesemia; E78.00 Pure hypercholesterolemia, unspecified; N31.9 Neuromuscular dysfunction of bladder, unspecified; Z79.4 Long term (current) use of insulin

== ENCOUNTER → 2023-03-01 | Outpatient (REF) | payer OTHER, MEDICARE, BC ==
[2023-03-01 14:05] LABS: APPEARANCE, URINE CLEAR (CLEAR); BACTERIA, URINE AUTO NEGATIVE (NEGATIVE); BILIRUBIN, URINE AUTO NEGATIVE (NEGATIVE); BLOOD, URINE BLOOD NEGATIVE (NEGATIVE); COLOR, URINE YELLOW (YELLOW); GLUCOSE, URINE (UA) AUTO NEGATIVE (NEGATIVE); KETONE, URINE AUTO NEGATIVE (NEGATIVE); LEUKOCYTE ESTERASE, URINE AUTO NEGATIVE (NEGATIVE); NITRITE, URINE AUTO NEGATIVE (NEGATIVE); PROTEIN, URINE AUTO NEGATIVE (NEGATIVE); RBC, URINE AUTO 0 /HPF (0-3); SPECIFIC GRAVITY URINE AUTO 1.009 (1.002-1.035); SQUAMOUS EPITHELIAL CELL UR AU 0 /HPF (0-6); WBC, URINE AUTO 1 /HPF (0-3)
[2023-03-01 14:31] LABS: CREATININE, URINE 38.4 MG/DL; MALB URINE SIEMENS < 3.0 MG/L; MAU/CREAT RATIO 7.8 MCG/MG (0.0-30.0)
== END ==
LOC: M LAB REF 13:38
PROVIDERS: ATTEND Internal Medicine
DX: E83.42 Hypomagnesemia (principal); Z79.4 Long term (current) use of insulin; N31.9 Neuromuscular dysfunction of bladder, unspecified; E78.5 Hyperlipidemia, unspecified; E78.00 Pure hypercholesterolemia, unspecified

== ENCOUNTER → 2023-03-13 | Outpatient (CLI) | payer BC, OTHER, MEDICARE ==
[~2023-03-13] MED LIST changes: -EFFE150C2 PO; +EFFE150C3 PO
== END ==
LOC: M WHC 16:02
PROVIDERS: ATTEND Internal Medicine
DX: Z12.31 Encounter for screening mammogram for malignant neoplasm of breast (principal)

== ENCOUNTER → 2023-03-21 | Outpatient (CLI) | payer BC, OTHER, MEDICARE | LOC: M RAD 14:32 | PROVIDERS: ATTEND Physician Assistant | DX: M23.221 Derangement of posterior horn of medial meniscus due to old tear or injury, right knee (principal); M94.261 Chondromalacia, right knee; M17.11 Unilateral primary osteoarthritis, right knee; M25.461 Effusion, right knee ==

== ENCOUNTER → 2023-04-07 | Outpatient (CLI) | payer BC, OTHER, MEDICARE ==
[~2023-04-07] MED LIST changes: -ALBU2.5V10; +ALBU2.5V10 INH; +CEVI30CA6 PO; +D 50CAP3 PO; -FURO20TA2; +FURO20TA2 PO; +HYDR8TAB PO; +IBUP-354 PO; +OMEP40CA5 PO; +PROL60SO SC; +ROSU10TA6 PO; -SPIR50TA4; +SPIR50TA4 PO; +TOUJ300I2 SC; +VENL225T32 PO; +[UNRECOGNIZED DRUG - CODE] IM
== END ==
LOC: M PLAIMG 09:56
PROVIDERS: ATTEND Internal Medicine Pulmonary Disease
DX: C34.31 Malignant neoplasm of lower lobe, right bronchus or lung (principal); I70.0 Atherosclerosis of aorta; I25.10 Atherosclerotic heart disease of native coronary artery without angina pectoris

== ENCOUNTER 2023-05-02 17:35 | Emergency (ER) | payer BC, OTHER, MEDICARE ==
[~2023-05-02] VITALS: Ht 167.6 cm; Wt 83.6 kg
[~2023-05-02 17:35] MED LIST changes: +METF-839 PO
[2023-05-02] MEDS ORDERED: TOUJ300I2 (18:17)
[2023-05-02 20:03] LABS: BASO % 0.2 % (0.0-1.0); EOS % 0.4 % (0.0-3.0); HEMATOCRIT 43.2 % (36.0-47.0); HEMOGLOBIN 14.1 g/dl (12.0-15.5); LYMPH # 2.5 10^3/uL (1.5-5.0); LYMPH % 26.5 % (24.0-44.0); MEAN CORPUSCULAR HGB CONC 32.6 g/dl (32.0-36.5); MEAN CORPUSCULAR VOLUME 94.9 fl (80.0-96.0); MONO # 0.7 10^3/uL (0.0-0.8); MONO % 7.5 % (2.0-8.0); NEUTROPHILS # 6.1 10^3/uL (1.5-8.5); NEUTROPHILS % 65.2 % (36.0-66.0); PLATELET COUNT, AUTOMATED 175 10^3/uL (150-450); RED BLOOD COUNT 4.55 10^6/uL (4.00-5.40); WHITE BLOOD COUNT 9.4 10^3/uL (4.0-10.0)
[2023-05-02] MEDS ORDERED: NS 1,000 ML IV ONE (20:20)
[2023-05-02 20:30] LABS: FREE T4 0.77 NG/DL (0.89-1.76); THYROID STIMULATING HORMONE 0.446 uIU/ML (0.55-4.78)
[2023-05-02 20:34] LABS: ALBUMIN 3.6 G/DL (3.2-5.2); ALKALINE PHOSPHATASE 192 U/L (46-116); ALT/SGPT 40 U/L (7.0-40); AST/SGOT 50 U/L (<34); BILIRUBIN,DIRECT 0.2 MG/DL (<0.4); BILIRUBIN,TOTAL 0.8 MG/DL (0.3-1.2); BLOOD UREA NITROGEN 16 MG/DL (9-23); CALCIUM LEVEL 9.2 MG/DL (8.3-10.6); CARBON DIOXIDE LEVEL 31 MMOL/L (20-31); CHLORIDE LEVEL 100 MMOL/L (98-107); CK-MB VALUE MASS 1.5 NG/ML (<3.6); CPK CREATINE PHOSPHOKINASE 115 U/L (34-145); CREATININE FOR GFR 0.73 MG/DL (0.55-1.30); GLOMERULAR FILTRATION RATE > 60.0 (>45); GLUCOSE, FASTING 156 MG/DL (74-106); LIPASE 30 U/L (12-53); POTASSIUM SERUM 3.9 MMOL/L (3.5-5.1); SODIUM LEVEL 141 MMOL/L (136-145); TOTAL PROTEIN 7.9 G/DL (5.7-8.2)
[2023-05-02 23:00] VITALS: BP 153/99; TEMP 98.1; O2SAT 98
== END 2023-05-02 23:33 | disposition home or self-care (01) ==
LOC: M ED 17:35
DX: R53.81 Other malaise (principal); R11.0 Nausea; R19.7 Diarrhea, unspecified; I45.10 Unspecified right bundle-branch block; I25.2 Old myocardial infarction; E11.9 Type 2 diabetes mellitus without complications; E78.5 Hyperlipidemia, unspecified; Z88.8 Allergy status to other drugs, medicaments and biological substances; Z79.52 Long term (current) use of systemic steroids; Z79.4 Long term (current) use of insulin; Z79.83 Long term (current) use of bisphosphonates; Z79.82 Long term (current) use of aspirin; Z79.899 Other long term (current) drug therapy

== ENCOUNTER → 2023-05-05 | Outpatient (REF) | payer BC, OTHER, MEDICARE ==
[~2023-05-05] MED LIST changes: +TOUJ300I2
== END ==
LOC: M LAB REF 12:53
PROVIDERS: ATTEND Nurse Practitioner Family
DX: G40.909 Epilepsy, unspecified, not intractable, without status epilepticus (principal); R06.02 Shortness of breath

== ENCOUNTER → 2023-05-06 | Outpatient (CLI) | payer BC, OTHER, MEDICARE ==
[2023-05-06 16:14] LABS: CALCIUM LEVEL 9.3 MG/DL (8.3-10.6)
[2023-05-06 16:21] LABS: TOTAL 25(OH) VITAMIN D 51.6 NG/ML (20.0-100.0)
== END ==
LOC: M LAB 15:07
PROVIDERS: ATTEND Internal Medicine Endocrinology, Diabetes & Metabolism
DX: M81.0 Age-related osteoporosis without current pathological fracture (principal)

== ENCOUNTER → 2023-05-15 | Outpatient (CLI) | payer BC, OTHER, MEDICARE ==
[~2023-05-15] MED LIST changes: -ASPI-161 PO; +ASPI-615 PO
[2023-05-15 16:19] LABS: BLOOD UREA NITROGEN 9 MG/DL (9-23); CALCIUM LEVEL 8.8 MG/DL (8.3-10.6); CARBON DIOXIDE LEVEL 33 MMOL/L (20-31); CHLORIDE LEVEL 101 MMOL/L (98-107); CREATININE FOR GFR 0.75 MG/DL (0.55-1.30); GLOMERULAR FILTRATION RATE > 60.0 (>45); GLUCOSE, FASTING 155 MG/DL (74-106); MAGNESIUM LEVEL 1.5 MG/DL (1.8-2.4); POTASSIUM SERUM 3.1 MMOL/L (3.5-5.1); SODIUM LEVEL 139 MMOL/L (136-145)
== END ==
LOC: M LAB 15:16
PROVIDERS: ATTEND Internal Medicine
DX: E87.6 Hypokalemia (principal); E83.42 Hypomagnesemia

== ENCOUNTER → 2023-05-22 | Outpatient (CLI) | payer BC, OTHER, MEDICARE ==
[2023-05-22 16:41] LABS: BLOOD UREA NITROGEN 11 MG/DL (9-23); CALCIUM LEVEL 7.4 MG/DL (8.3-10.6); CARBON DIOXIDE LEVEL 30 MMOL/L (20-31); CHLORIDE LEVEL 101 MMOL/L (98-107); CREATININE FOR GFR 0.59 MG/DL (0.55-1.30); GLOMERULAR FILTRATION RATE > 60.0 (>45); GLUCOSE, FASTING 225 MG/DL (74-106); MAGNESIUM LEVEL 1.4 MG/DL (1.8-2.4); POTASSIUM SERUM 3.1 MMOL/L (3.5-5.1); SODIUM LEVEL 138 MMOL/L (136-145)
== END ==
LOC: M LAB 15:41
PROVIDERS: ATTEND Internal Medicine
DX: E87.6 Hypokalemia (principal); E83.42 Hypomagnesemia

== ENCOUNTER → 2023-05-26 | Outpatient (REF) | payer BC, OTHER, MEDICARE ==
[2023-05-26 14:53] LABS: BLOOD UREA NITROGEN 9 MG/DL (9-23); CALCIUM LEVEL 8.8 MG/DL (8.3-10.6); CARBON DIOXIDE LEVEL 33 MMOL/L (20-31); CHLORIDE LEVEL 105 MMOL/L (98-107); CREATININE FOR GFR 0.69 MG/DL (0.55-1.30); GLOMERULAR FILTRATION RATE > 60.0 (>45); GLUCOSE, FASTING 123 MG/DL (74-106); MAGNESIUM LEVEL 1.7 MG/DL (1.8-2.4); POTASSIUM SERUM 3.7 MMOL/L (3.5-5.1); SODIUM LEVEL 141 MMOL/L (136-145)
== END ==
LOC: M LAB REF 13:57
PROVIDERS: ATTEND Internal Medicine
DX: I10 Essential (primary) hypertension (principal); E83.42 Hypomagnesemia

== ENCOUNTER → 2023-05-27 | Outpatient (CLI) | payer BC, OTHER, MEDICARE | LOC: M RAD 15:26 | PROVIDERS: ATTEND Internal Medicine | DX: R07.9 Chest pain, unspecified (principal); I47.10 Supraventricular tachycardia, unspecified ==

== ENCOUNTER → 2023-06-01 | Outpatient (CLI) | payer BC, MEDICARE | LOC: M RAD 13:18 | PROVIDERS: ATTEND Internal Medicine | DX: R07.9 Chest pain, unspecified (principal); I47.10 Supraventricular tachycardia, unspecified; Z53.9 Procedure and treatment not carried out, unspecified reason ==

== ENCOUNTER → 2023-06-02 | Outpatient (CLI) | payer BC, MEDICARE | LOC: M RAD 15:25 | PROVIDERS: ATTEND Internal Medicine | DX: R07.9 Chest pain, unspecified (principal) ==

== ENCOUNTER → 2023-06-20 | Outpatient (REF) | payer OTHER, MEDICARE, BC ==
[~2023-06-20] MED LIST changes: +ATOG60TA; +METO5TAB2; +NOVOINJ3
== END ==
LOC: M LAB REF 15:59
PROVIDERS: ATTEND Physician Assistant Medical
DX: E87.6 Hypokalemia (principal); R60.0 Localized edema; R06.02 Shortness of breath

== ENCOUNTER 2023-07-07 19:27 | Emergency (ER) | payer BC, MEDICARE ==
[~2023-07-07] VITALS: Ht 167.6 cm; Wt 80.9 kg
[2023-07-07 20:31] LABS: VENOUS HCO3 28.1 MMOL/L (23.0-27.0); VENOUS O2 SATURATION 38.3 % (60.0-80.0); VENOUS PARTIAL PRESSURE CO2 54.8 mmHg (38.0-50.0); VENOUS PARTIAL PRESSURE O2 24.9 mmHg (30.0-50.0); VENOUS PH 7.328 UNITS (7.330-7.430); VENOUS TOTAL CO2 29.8 MMOL/L (24.0-28.0)
[2023-07-07 20:32] VITALS: TEMP 97.2
[2023-07-07 20:39] LABS: BASO # 0.1 10^3/uL (0.0-0.2); BASO % 0.5 % (0.0-1.0); EOS # 0.2 10^3/uL (0.0-0.5); EOS % 2.6 % (0.0-3.0); HEMATOCRIT 39.5 % (36.0-47.0); HEMOGLOBIN 12.5 g/dl (12.0-15.5); LYMPH # 2.3 10^3/uL (1.5-5.0); LYMPH % 25.7 % (24.0-44.0); MEAN CORPUSCULAR HEMOGLOBIN 31.6 pg (27.0-33.0); MEAN CORPUSCULAR HGB CONC 31.6 g/dl (32.0-36.5); MEAN CORPUSCULAR VOLUME 99.7 fl (80.0-96.0); MONO # 0.7 10^3/uL (0.0-0.8); MONO % 7.6 % (2.0-8.0); NEUTROPHILS # 5.8 10^3/uL (1.5-8.5); NEUTROPHILS % 63.3 % (36.0-66.0); PLATELET COUNT, AUTOMATED 252 10^3/uL (150-450); RED BLOOD COUNT 3.96 10^6/uL (4.00-5.40); WHITE BLOOD COUNT 9.1 10^3/uL (4.0-10.0)
[2023-07-07 21:03] LABS: HEMOGLOBIN A1c 6.5 % (4.0-6.0)
[2023-07-07] MEDS: ACETAMINOPHEN TAB 650MG DOSE (2X325MG) PO ONE (21:03)
[2023-07-07 21:06] LABS: LIPASE 27 U/L (12-53)
[2023-07-07 21:07] LABS: CK-MB VALUE MASS 4.3 NG/ML (<3.6)
[2023-07-07 21:09] LABS: ALBUMIN 3.5 G/DL (3.2-5.2); ALKALINE PHOSPHATASE 182 U/L (46-116); ALT/SGPT 56 U/L (7.0-40); AST/SGOT 48 U/L (<34); BILIRUBIN,DIRECT 0.3 MG/DL (<0.4); BILIRUBIN,TOTAL 0.7 MG/DL (0.3-1.2); BLOOD UREA NITROGEN 17 MG/DL (9-23); CALCIUM LEVEL 8.7 MG/DL (8.3-10.6); CARBON DIOXIDE LEVEL 30 MMOL/L (20-31); CHLORIDE LEVEL 103 MMOL/L (98-107); CPK CREATINE PHOSPHOKINASE 120 U/L (34-145); CREATININE FOR GFR 0.76 MG/DL (0.55-1.30); GLOMERULAR FILTRATION RATE > 60.0 (>45); GLUCOSE, FASTING 83 MG/DL (74-106); MAGNESIUM LEVEL 2.1 MG/DL (1.8-2.4); MB/CK RELATIVE INDEX 3.58 (< OR =4); POTASSIUM SERUM 3.8 MMOL/L (3.5-5.1); SODIUM LEVEL 139 MMOL/L (136-145); TOTAL PROTEIN 7.5 G/DL (5.7-8.2)
[2023-07-07 21:26] LABS: CK-MB VALUE MASS 3.9 NG/ML (<3.6)
[2023-07-07 21:29] LABS: MB/CK RELATIVE INDEX 2.86 (< OR =4)
[2023-07-07 22:00] VITALS: BP 122/74
[2023-07-07 22:35] VITALS: O2SAT 97
[2023-07-11 16:10] LABS: INSULIN LEVEL 0.9 uIU/mL (2.6-24.9)
== END 2023-07-07 22:51 | disposition home or self-care (01) ==
LOC: M ED 19:27
DX: E11.649 Type 2 diabetes mellitus with hypoglycemia without coma (principal); I25.10 Atherosclerotic heart disease of native coronary artery without angina pectoris; I10 Essential (primary) hypertension; M35.00 Sjogren syndrome, unspecified; Z79.82 Long term (current) use of aspirin; Z79.4 Long term (current) use of insulin; Z79.899 Other long term (current) drug therapy; Z88.8 Allergy status to other drugs, medicaments and biological substances
CPT/HCPCS: 36415; 80048; 80076; 81001; 82550; 82553; 82803; 83036; 83525; 83690; 83735; 83930; 84206; 84484; 85025; 87040; 87088; 87486; 87581; 87633; 87798; 93005; 93041; 94760; 99285; G0480

== ENCOUNTER → 2023-07-16 | Outpatient (CLI) | payer BC, MEDICARE ==
[~2023-07-16] MED LIST changes: +DEXC1MIS3; +DEXC1MIS4; +ISOVUE-370 76% 100ML VIAL As Ordered ONE; +METO1TAB87
== END ==
LOC: M RAD 09:21
PROVIDERS: ATTEND Specialist
DX: R91.1 Solitary pulmonary nodule (principal); J98.4 Other disorders of lung; I77.811 Abdominal aortic ectasia; D35.01 Benign neoplasm of right adrenal gland
CPT/HCPCS: 71260; Q9967

== ENCOUNTER → 2023-08-07 | Outpatient (REF) | payer OTHER, MEDICARE ==
[~2023-08-07] MED LIST changes: -ISOVUE-370 76% 100ML VIAL As Ordered ONE; -ROSU10TA6 PO; +ROSU10TA61 PO
== END ==
LOC: M LAB REF 15:55
PROVIDERS: ATTEND Internal Medicine Gastroenterology
DX: R19.7 Diarrhea, unspecified (principal)

== ENCOUNTER → 2023-08-18 | Outpatient (CLI) | payer BC, MEDICARE | LOC: M WHC 10:37 | PROVIDERS: ATTEND Nurse Practitioner Family | DX: M81.0 Age-related osteoporosis without current pathological fracture (principal) ==

== ENCOUNTER → 2023-08-20 | Outpatient (CLI) | payer BC, MEDICARE ==
[~2023-08-20] MED LIST changes: +BARIUM SULFATE 700 MG TABLET (E-Z-DISK) As Ordered ONE; +E-Z-GAS II EFFERVESCENT PACKET (SODIUM BICARB./CITRIC ACID/SIMETHICONE) As Ordered ONE; +E-Z-HD 98% w/w 340GM SUSP BTL As Ordered ONE; +E-Z-PAQUE 96% w/w SUSP 176GM BTL As Ordered ONE
== END ==
LOC: M RAD 10:30
PROVIDERS: ATTEND Internal Medicine Gastroenterology
DX: R19.7 Diarrhea, unspecified (principal)

== ENCOUNTER → 2023-10-23 | Outpatient (REF) | payer BC, OTHER, MEDICARE ==
[~2023-10-23] MED LIST changes: -BARIUM SULFATE 700 MG TABLET (E-Z-DISK) As Ordered ONE; -E-Z-GAS II EFFERVESCENT PACKET (SODIUM BICARB./CITRIC ACID/SIMETHICONE) As Ordered ONE; -E-Z-HD 98% w/w 340GM SUSP BTL As Ordered ONE; -E-Z-PAQUE 96% w/w SUSP 176GM BTL As Ordered ONE
[2023-10-23 14:48] LABS: CREATININE FOR GFR 1.09 MG/DL (0.55-1.30)
== END ==
LOC: M LAB REF 13:00
PROVIDERS: ATTEND Internal Medicine Pulmonary Disease
DX: R09.02 Hypoxemia (principal)

== ENCOUNTER → 2023-10-29 | Outpatient (CLI) | payer BC, MEDICARE ==
[~2023-10-29] MED LIST changes: +ISOVUE-370 76% 100ML VIAL As Ordered ONE
== END ==
LOC: M RAD 08:03
PROVIDERS: ATTEND Internal Medicine Pulmonary Disease
DX: R09.02 Hypoxemia (principal)

== ENCOUNTER → 2023-11-12 | Outpatient (CLI) | payer BC, MEDICARE ==
[~2023-11-12] MED LIST changes: -ISOVUE-370 76% 100ML VIAL As Ordered ONE; +SUCR1TAB56
== END ==
LOC: M LAB 15:20
PROVIDERS: ATTEND Internal Medicine Endocrinology, Diabetes & Metabolism
DX: M81.0 Age-related osteoporosis without current pathological fracture (principal)

== ENCOUNTER → 2024-02-20 | Outpatient (CLI) | payer BC, OTHER, MEDICARE ==
[~2024-02-20] MED LIST changes: +GABA-1172 PO; +GABA-1490 PO; -GABA-282 PO; -GABA600T4 PO
[2024-02-20 16:02] LABS: APPEARANCE, URINE CLEAR (CLEAR); BACTERIA, URINE AUTO 1+ (NEGATIVE); BILIRUBIN, URINE AUTO NEGATIVE (NEGATIVE); BLOOD, URINE BLOOD NEGATIVE (NEGATIVE); COLOR, URINE YELLOW (YELLOW); GLUCOSE, URINE (UA) AUTO NEGATIVE (NEGATIVE); KETONE, URINE AUTO NEGATIVE (NEGATIVE); LEUKOCYTE ESTERASE, URINE AUTO NEGATIVE (NEGATIVE); NITRITE, URINE AUTO NEGATIVE (NEGATIVE); PROTEIN, URINE AUTO NEGATIVE (NEGATIVE); RBC, URINE AUTO 0 /HPF (0-3); SPECIFIC GRAVITY URINE AUTO 1.009 (1.002-1.035); SQUAMOUS EPITHELIAL CELL UR AU 0 /HPF (0-6); UROBILINOGEN, URINE AUTO 0.2 mg/dL (0.0-2.0); WBC, URINE AUTO 0 /HPF (0-3)
[2024-02-20 16:30] LABS: C REACTIVE PROTEIN QUANTITATIV < 0.40 MG/DL (<1.0)
[2024-02-20 16:31] LABS: CHOLESTEROL LEVEL 176 MG/DL (<200); CHOLESTEROL RISK RATIO 2.63 (<5); CPK CREATINE PHOSPHOKINASE 277 U/L (34-145); CREATININE, URINE 30.5 MG/DL; HDL CHOLESTEROL 66.9 MG/DL (>40); LDL CHOLESTEROL 90.7 MG/DL (<100); MAGNESIUM LEVEL 1.8 MG/DL (1.8-2.4); MALB URINE SIEMENS < 3.0 MG/L; NON-HDL-C 109.1 MG/DL; TRIGLYCERIDES LEVEL 92 MG/DL (<150)
[2024-02-20 16:34] LABS: THYROID STIMULATING HORMONE 3.194 uIU/ML (0.55-4.78)
== END ==
LOC: M LAB 15:18
PROVIDERS: ATTEND Internal Medicine
DX: E11.65 Type 2 diabetes mellitus with hyperglycemia (principal); Z79.4 Long term (current) use of insulin; E16.2 Hypoglycemia, unspecified

== ENCOUNTER → 2024-03-03 | Outpatient (REF) | payer OTHER, MEDICARE ==
[~2024-03-03] MED LIST changes: +SEMA0.257
== END ==
LOC: M LAB REF 09:10
PROVIDERS: ATTEND Internal Medicine
DX: E11.65 Type 2 diabetes mellitus with hyperglycemia (principal)

== ENCOUNTER → 2024-03-22 | Outpatient (CLI) | payer BC, MEDICARE | LOC: M LAB 11:35 | PROVIDERS: ATTEND Internal Medicine | DX: E11.65 Type 2 diabetes mellitus with hyperglycemia (principal) ==

== ENCOUNTER → 2024-03-29 | Outpatient (CLI) | payer BC, MEDICARE ==
[~2024-03-29] MED LIST changes: +ISOVUE-370 76% 100ML VIAL As Ordered ONE
== END ==
LOC: M RAD 10:29
PROVIDERS: ATTEND Nurse Practitioner Women's Health
DX: C34.90 Malignant neoplasm of unspecified part of unspecified bronchus or lung (principal)

== ENCOUNTER → 2024-04-06 | Outpatient (CLI) | payer BC, OTHER, MEDICARE ==
[~2024-04-06] MED LIST changes: -ISOVUE-370 76% 100ML VIAL As Ordered ONE
== END ==
LOC: M LAB 15:58
PROVIDERS: ATTEND Internal Medicine
DX: E78.00 Pure hypercholesterolemia, unspecified (principal)

== ENCOUNTER → 2024-04-13 | Outpatient (CLI) | payer BC, MEDICARE | LOC: M WHC 07:52 | PROVIDERS: ATTEND Internal Medicine | DX: Z12.31 Encounter for screening mammogram for malignant neoplasm of breast (principal); R92.313 Mammographic fatty tissue density, bilateral breasts ==

== ENCOUNTER → 2024-05-10 | Outpatient (CLI) | payer BC, MEDICARE ==
[2024-05-10 21:33] LABS: CALCIUM LEVEL 9.5 MG/DL (8.3-10.6)
[2024-05-10 21:38] LABS: TOTAL 25(OH) VITAMIN D 51.3 NG/ML (20.0-100.0)
== END ==
LOC: M LAB 15:30
PROVIDERS: ATTEND Nurse Practitioner Family
DX: M81.0 Age-related osteoporosis without current pathological fracture (principal); E55.9 Vitamin D deficiency, unspecified

== ENCOUNTER → 2024-10-06 | Outpatient (CLI) | payer BC, MEDICARE ==
[~2024-10-06] MED LIST changes: +BUDE10.7; +DENO60SY2 SC; +LIDO1ADH93 TD; -LIDO5DIS41 TD; -PROL60SO SC; +VENL225T PO; -VENL225T32 PO
[2024-10-06 19:07] LABS: CALCIUM LEVEL 9.3 MG/DL (8.3-10.6); CARBON DIOXIDE LEVEL 30.0 MMOL/L (20-31); CHLORIDE LEVEL 102.0 MMOL/L (98-107); CREATININE FOR GFR 0.95 MG/DL (0.55-1.30); GLOMERULAR FILTRATION RATE 64.5 (>39); MAGNESIUM LEVEL 2.0 MG/DL (1.8-2.4); POTASSIUM SERUM 4.2 MMOL/L (3.5-5.1); SODIUM LEVEL 142.0 MMOL/L (136-145)
== END ==
LOC: M LAB 16:25
PROVIDERS: ATTEND Internal Medicine
DX: E11.9 Type 2 diabetes mellitus without complications (principal)

== ENCOUNTER → 2024-11-22 | Outpatient (CLI) | payer BC, MEDICARE ==
[~2024-11-22] MED LIST changes: -IBUP1TAB6 PO; +SFHIBU600 PO; +SLOW1TAB3 PO; -SLOWTAB2 PO
== END ==
LOC: M RAD 15:11
PROVIDERS: ATTEND Internal Medicine Pulmonary Disease
DX: J47.9 Bronchiectasis, uncomplicated (principal)

== ENCOUNTER → 2024-12-10 | Outpatient (CLI) | payer BC, OTHER, MEDICARE | LOC: M LAB 09:21 | PROVIDERS: ATTEND Psychiatry & Neurology Neurology | DX: R56.9 Unspecified convulsions (principal) ==

== ENCOUNTER → 2024-12-10 | Outpatient (CLI) | payer BC, OTHER, MEDICARE ==
[2024-12-10 11:37] LABS: CALCIUM LEVEL 9.5 MG/DL (8.3-10.6); CARBON DIOXIDE LEVEL 34.0 MMOL/L (20-31); CHLORIDE LEVEL 100.0 MMOL/L (98-107); CREATININE FOR GFR 0.82 MG/DL (0.55-1.30); GLOMERULAR FILTRATION RATE 76.9 (>39); POTASSIUM SERUM 4.1 MMOL/L (3.5-5.1); SODIUM LEVEL 143.0 MMOL/L (136-145)
[2024-12-10 11:39] LABS: TOTAL 25(OH) VITAMIN D 52.2 NG/ML (20.0-100.0)
== END ==
LOC: M LAB 09:17
PROVIDERS: ATTEND Internal Medicine
DX: M81.0 Age-related osteoporosis without current pathological fracture (principal); E55.9 Vitamin D deficiency, unspecified

== ENCOUNTER → 2025-01-04 | Outpatient (REF) | payer BC, OTHER, MEDICARE ==
[2025-01-04 14:18] LABS: CALCIUM LEVEL 8.7 MG/DL (8.3-10.6); CARBON DIOXIDE LEVEL 27.0 MMOL/L (20-31); CHLORIDE LEVEL 103.0 MMOL/L (98-107); CREATININE FOR GFR 0.72 MG/DL (0.55-1.30); GLOMERULAR FILTRATION RATE 89.9 (>39); MAGNESIUM LEVEL 1.7 MG/DL (1.8-2.4); POTASSIUM SERUM 3.9 MMOL/L (3.5-5.1); SODIUM LEVEL 139.0 MMOL/L (136-145)
== END ==
LOC: M LAB REF 13:34
PROVIDERS: ATTEND Internal Medicine
DX: E11.9 Type 2 diabetes mellitus without complications (principal); E83.42 Hypomagnesemia

== ENCOUNTER → 2025-01-13 | Outpatient (CLI) | payer BC, OTHER, MEDICARE ==
[2025-01-13 16:18] LABS: BACTERIA, URINE AUTO 2+ (NEGATIVE); RBC, URINE AUTO 1 /HPF (0-3); SQUAMOUS EPITHELIAL CELL UR AU 1 /HPF (0-6); WBC, URINE AUTO 4 /HPF (0-3)
== END ==
LOC: M LAB 14:48
PROVIDERS: ATTEND Internal Medicine
DX: N39.0 Urinary tract infection, site not specified (principal)